=== PATIENT | male | born 1965 | race Caucasian/White ===

== ENCOUNTER 2017-01-06 03:56 | Inpatient (IN) | payer MEDICARE, OTHER ==
[~2017-01-06] VITALS: Ht 182.9 cm; Wt 49.0 kg
[2017-01-06] MEDS ORDERED: LORazepam 2 MG/ML, 1ML ONE (04:03)
[2017-01-06] MEDS ORDERED: methylPREDNISolone SOD SUCC 125 MG/2 ML ONE (04:09)
[2017-01-06] MEDS ORDERED: ALBUTEROL/IPRATROPIUM 2.5MG/0.5MG, 3 ML ONE (04:17)
[2017-01-06] MEDS ORDERED: SODIUM CHLORIDE 0.9% 1,000ML IVBOLUS ONE ×2 (04:30→05:00)
[2017-01-06] MEDS ORDERED: ALBUTEROL/IPRATROPIUM 2.5MG/0.5MG, 3 ML NPPB ONE (04:30)
[2017-01-06] MEDS ORDERED: methylPREDNISolone SOD SUCC 125 MG/2 ML IVP ONE (04:30)
[2017-01-06] MEDS ORDERED: LORazepam 2 MG/ML, 1ML IVP ONE (04:30)
[2017-01-06 04:42] LABS: MEAN CORPUSCULAR HEMOGLOBIN 31.8 pg (27.5-34.5); MEAN CORPUSCULAR VOLUME 93.5 fL (81-97); MEAN PLATELET VOLUME 9.1 fL (7.4-10.4); PLATELET COUNT 163 x10^3/uL (130-400); RED BLOOD COUNT 4.49 x10^6/uL (4.38-5.82)
[2017-01-06 04:49] LABS: ALANINE AMINOTRANSFERASE 18 U/L (12-78); ANION GAP 16 mmol/L (5-15); CALCIUM 8.5 mg/dL (8.5-10.1); CHLORIDE 91 mmol/L (98-107); CREATININE 4.51 mg/dL (0.7-1.3)
[2017-01-06 04:53] LABS: ALKALINE PHOSPHATASE 47 U/L (45-117); BILIRUBIN,TOTAL 2.8 mg/dL (0.2-1.0); TOTAL PROTEIN 6.8 g/dL (6.4-8.2); TROPONIN I < 0.015 ng/mL (0.000-0.045)
[2017-01-06 04:58] LABS: MD YES
[2017-01-06] MEDS ORDERED: LORazepam 2 MG/ML, 1ML IVPush ONE (05:00)
[2017-01-06 05:01] LABS: BAND#(MANUAL) 0.85 x10^3/uL; BANDS%(MANUAL) 18 % (0-7); LYMPH#(MANUAL) 0.19 x10^3/uL (1-3.4); LYMPHS% (MANUAL) 4 % (22-44); SEG#(MANUAL) 3.67 x10^3/uL (1.8-6.8); SEGS% (MANUAL) 78 % (42-75)
[2017-01-06 05:02] LABS: ANISOCYTOSIS 1+
[2017-01-06 05:03] LABS: <PLATELET ESTIMATE> ADEQUATE; GIANT PLATELETS 1+; LARGE PLATELETS 1+; PMNS WITH VACUOLES 1+; TOXIC GRAN 1+
[2017-01-06] MEDS: PROPOFOL 100 ML IV PRN ×5 (05:20→16:39)
[2017-01-06] MEDS ORDERED: CEFTRIAXONE PMX 1GM/50ML 50 ML ONE (05:27)
[2017-01-06] MEDS ORDERED: AZITHROMYCIN 500 MG in SODIUM CHLORIDE 0.9% 250 ML IV ONE (05:30)
[2017-01-06] MEDS ORDERED: ROCURONIUM 10 MG/ML,10ML IVPush ONE (05:30)
[2017-01-06] MEDS ORDERED: CEFTRIAXONE PMX 1GM/50ML 50 ML IV ONE (05:30)
[2017-01-06] MEDS ORDERED: ETOMIDATE 20 MG/10 ML IV ONE (05:30)
[2017-01-06 06:59] LABS: AMPHETAMINE SCREEN, URINE Negative (Negative); BARBITURATE SCREEN, URINE Negative (Negative); BENZODIAZEPINE SCREEN, URINE Negative (Negative); CANNABINOID SCREEN, URINE Negative (Negative); COCAINE SCREEN, URINE Negative (Negative); METHADONE SCREEN, URINE Negative (Negative); OPIATE SCREEN, URINE Negative (Negative)
[2017-01-06] MEDS ORDERED: ETOMIDATE 20 MG/10 ML ONE (08:00)
[2017-01-06] MEDS ORDERED: ROCURONIUM 10 MG/ML,10ML ONE (08:00)
[2017-01-06] MEDS ORDERED: PROPOFOL 10 MG/ML, 100ML IV ONE (08:00)
[2017-01-06] MEDS: FAMOTIDINE 20 MG/2 ML IVPush SCH ×2 (09:00→21:14)
[2017-01-06] MEDS ORDERED: FAMOTIDINE 20 MG/2 ML ONE (09:47)
[2017-01-06] MEDS: AZITHROMYCIN 500 MG in SODIUM CHLORIDE 0.9% 250 ML IV SCH (10:00)
[2017-01-06] MEDS: CEFTRIAXONE PMX 2GM/50ML 50 ML IV SCH (10:00)
[2017-01-06] MEDS: ALBUTEROL/IPRATROPIUM 2.5MG/0.5MG, 3 ML INLINE SCH ×4 (10:42→22:39)
[2017-01-06] MEDS ORDERED: PHARMACY MAY ADJ FOR RENAL FX MC SCH (11:00)
[2017-01-06] MEDS: methylPREDNISolone SOD SUCC 125 MG/2 ML IVPush SCH ×3 (11:12→21:14)
[2017-01-06] MEDS: HEPARIN 5,000 UNITS/ML, 1ML SQ SCH ×2 (11:13→18:47)
[2017-01-06] MEDS: SODIUM CHLORIDE 0.9% 1,000 ML IV SCH ×3 (12:42→22:53)
[2017-01-06] MEDS: THIAMINE 100 MG, MVI ADULT 10 ML, FOLIC ACID 1 MG in D5%-0.9% NACL 1,000 ML IV SCH (12:54)
[2017-01-06] MEDS: NOREPINEPHRINE 4 MG in SODIUM CHLORIDE 0.9% 246 ML IV PRN ×2 (13:31→23:03)
[2017-01-06] MEDS: LIDOCAINE-MPF 1%, 2ML ENDO PRN (13:52)
[2017-01-06 14:33] LABS: MICROSCOPIC INDICATED
[2017-01-06 15:07] LABS: CULTURE INDICATED? YES
[2017-01-07] MEDS: PROPOFOL 100 ML IV PRN ×2 (01:22→17:45)
[2017-01-07] MEDS: ALBUTEROL/IPRATROPIUM 2.5MG/0.5MG, 3 ML INLINE SCH ×6 (02:06→22:37)
[2017-01-07] MEDS: HEPARIN 5,000 UNITS/ML, 1ML SQ SCH ×3 (02:59→18:24)
[2017-01-07] MEDS: SODIUM CHLORIDE 0.9% 1,000 ML IV SCH ×3 (03:45→15:55)
[2017-01-07] MEDS: methylPREDNISolone SOD SUCC 125 MG/2 ML IVPush SCH ×4 (04:11→21:54)
[2017-01-07] MEDS: CEFTRIAXONE PMX 2GM/50ML 50 ML IV SCH (05:04)
[2017-01-07] MEDS: NOREPINEPHRINE 4 MG in SODIUM CHLORIDE 0.9% 246 ML IV PRN ×2 (05:11→13:10)
[2017-01-07 05:45] VITALS: BP 96/59
[2017-01-07 05:56] LABS: CHLORIDE 112 mmol/L (98-107)
[2017-01-07 06:02] LABS: ALANINE AMINOTRANSFERASE 12 U/L (12-78); ALBUMIN 1.3 g/dL (3.4-5.0); ALKALINE PHOSPHATASE 35 U/L (45-117); ANION GAP 12 mmol/L (5-15); BILIRUBIN,TOTAL 2.7 mg/dL (0.2-1.0); CALCIUM 6.9 mg/dL (8.5-10.1); CREATININE 2.98 mg/dL (0.7-1.3); MEAN CORPUSCULAR HEMOGLOBIN 31.5 pg (27.5-34.5); MEAN CORPUSCULAR HGB CONC 33.4 g/dL (33.2-36.2); MEAN CORPUSCULAR VOLUME 94.4 fL (81-97); MEAN PLATELET VOLUME 8.8 fL (7.4-10.4); PLATELET COUNT 130 x10^3/uL (130-400); RED CELL DISTRIBUTION WIDTH 13.5 % (9.4-14.8); TOTAL PROTEIN 4.6 g/dL (6.4-8.2)
[2017-01-07] MEDS: AZITHROMYCIN 500 MG in SODIUM CHLORIDE 0.9% 250 ML IV SCH (06:04)
[2017-01-07 06:25] LABS: MD YES
[2017-01-07 06:29] LABS: BAND#(MANUAL) 0.75 x10^3/uL; BANDS%(MANUAL) 9 % (0-7); LYMPH#(MANUAL) 0.17 x10^3/uL (1-3.4); LYMPHS% (MANUAL) 2 % (22-44); SEG#(MANUAL) 7.39 x10^3/uL (1.8-6.8); SEGS% (MANUAL) 89 % (42-75)
[2017-01-07 06:31] LABS: ANISOCYTOSIS 1+
[2017-01-07 06:32] LABS: <PLATELET ESTIMATE> DECREASED; PMNS WITH VACUOLES 1+; TOXIC GRAN 1+
[2017-01-07 06:33] LABS: <PLT MORPHOLOGY> NORMAL PLT MORPH
[2017-01-07] MEDS: FAMOTIDINE 20 MG/2 ML IVPush SCH (10:02)
[2017-01-07] MEDS: THIAMINE 100 MG, MVI ADULT 10 ML, FOLIC ACID 1 MG in D5%-0.9% NACL 1,000 ML IV SCH (13:11)
[2017-01-07] MEDS: FENTANYL PF 100 MCG/2ML IVPush PRN (18:20)
[2017-01-07] MEDS: LIDOCAINE-MPF 1%, 2ML ENDO PRN (20:02)
[2017-01-07] MEDS: QUETIAPINE 25MG TABLET PO SCH (21:17)
[2017-01-08] MEDS: PROPOFOL 100 ML IV PRN ×5 (00:49→20:55)
[2017-01-08] MEDS: HEPARIN 5,000 UNITS/ML, 1ML SQ SCH ×3 (01:53→17:08)
[2017-01-08] MEDS: ALBUTEROL/IPRATROPIUM 2.5MG/0.5MG, 3 ML INLINE SCH ×6 (02:28→22:12)
[2017-01-08 03:22] LABS: ALANINE AMINOTRANSFERASE 13 U/L (12-78); ALBUMIN 1.1 g/dL (3.4-5.0); ANION GAP 9 mmol/L (5-15); CALCIUM 7.1 mg/dL (8.5-10.1); CHLORIDE 119 mmol/L (98-107); CREATININE 2.86 mg/dL (0.7-1.3)
[2017-01-08 03:24] LABS: ALKALINE PHOSPHATASE 44 U/L (45-117); BILIRUBIN,TOTAL 1.3 mg/dL (0.2-1.0); TOTAL PROTEIN 4.3 g/dL (6.4-8.2)
[2017-01-08 03:26] LABS: MEAN CORPUSCULAR HEMOGLOBIN 32.8 pg (27.5-34.5); MEAN CORPUSCULAR VOLUME 93.7 fL (81-97); MEAN PLATELET VOLUME 8.7 fL (7.4-10.4); PLATELET COUNT 89 x10^3/uL (130-400); RED BLOOD COUNT 2.95 x10^6/uL (4.38-5.82); RED CELL DISTRIBUTION WIDTH 13.4 % (9.4-14.8)
[2017-01-08 03:32] LABS: MD YES
[2017-01-08 03:34] LABS: ANISOCYTOSIS 1+; BAND#(MANUAL) 0.78 x10^3/uL; BANDS%(MANUAL) 8 % (0-7); LYMPH#(MANUAL) 0.29 x10^3/uL (1-3.4); LYMPHS% (MANUAL) 3 % (22-44); SEG#(MANUAL) 8.72 x10^3/uL (1.8-6.8); SEGS% (MANUAL) 89 % (42-75)
[2017-01-08 03:36] LABS: <PLATELET ESTIMATE> DECREASED; <PLT MORPHOLOGY> NORMAL PLT MORPH
[2017-01-08] MEDS: methylPREDNISolone SOD SUCC 125 MG/2 ML IVPush SCH ×3 (04:15→21:56)
[2017-01-08 04:34] VITALS: BP 110/54
[2017-01-08] MEDS: CEFTRIAXONE PMX 2GM/50ML 50 ML IV SCH (04:50)
[2017-01-08] MEDS: AZITHROMYCIN 500 MG in SODIUM CHLORIDE 0.9% 250 ML IV SCH (06:00)
[2017-01-08] MEDS: FENTANYL PF 100 MCG/2ML IVPush PRN ×2 (06:26→20:58)
[2017-01-08] MEDS: QUETIAPINE 25MG TABLET PO SCH ×3 (09:44→21:03)
[2017-01-08] MEDS: FAMOTIDINE 20 MG/2 ML IVPush SCH (09:44)
[2017-01-08] MEDS: LORazepam 2 MG/ML, 1ML IV PRN ×5 (10:39→22:29)
[2017-01-08] MEDS ORDERED: SODIUM CHLORIDE 0.9% 1,000 ML IV SCH (11:00)
[2017-01-08] MEDS: THIAMINE 100 MG, MVI ADULT 10 ML, FOLIC ACID 1 MG in D5%-0.9% NACL 1,000 ML IV SCH (11:52)
[2017-01-08] MEDS: SODIUM CHLORIDE 0.9% 1,000 ML IV SCH (22:29)
[2017-01-09] MEDS: PROPOFOL 100 ML IV PRN ×5 (01:47→23:40)
[2017-01-09] MEDS: HEPARIN 5,000 UNITS/ML, 1ML SQ SCH ×3 (01:48→17:37)
[2017-01-09] MEDS: ALBUTEROL/IPRATROPIUM 2.5MG/0.5MG, 3 ML INLINE SCH ×6 (02:10→23:00)
[2017-01-09 03:50] LABS: ANION GAP 12 mmol/L (5-15); CALCIUM 7.4 mg/dL (8.5-10.1); CHLORIDE 120 mmol/L (98-107); MEAN CORPUSCULAR HEMOGLOBIN 31.7 pg (27.5-34.5); MEAN CORPUSCULAR HGB CONC 34.3 g/dL (33.2-36.2); MEAN CORPUSCULAR VOLUME 92.5 fL (81-97); MEAN PLATELET VOLUME 9.7 fL (7.4-10.4); PLATELET COUNT 95 x10^3/uL (130-400)
[2017-01-09 03:51] LABS: CREATININE 2.61 mg/dL (0.7-1.3); TRIGLYCERIDES 334 mg/dL (50-200)
[2017-01-09] MEDS: CEFTRIAXONE PMX 2GM/50ML 50 ML IV SCH (04:43)
[2017-01-09] MEDS: SODIUM CHLORIDE 0.9% 1,000 ML IV SCH (04:43)
[2017-01-09 05:01] LABS: MD YES
[2017-01-09 05:04] LABS: BAND#(MANUAL) 0.71 x10^3/uL; BANDS%(MANUAL) 5 % (0-7); METAMYELOCYTES# (MANUAL) 0.14 x10^3/uL (0-0); METAMYELOCYTES% (MANUAL) 1 % (0-1); SEG#(MANUAL) 13.35 x10^3/uL (1.8-6.8); SEGS% (MANUAL) 94 % (42-75)
[2017-01-09 05:05] LABS: <PLATELET ESTIMATE> DECREASED; <PLT MORPHOLOGY> NORMAL PLT MORPH; <RBC MORPHOLOGY> NORMAL; PMNS WITH VACUOLES 1+; TOXIC GRAN 1+
[2017-01-09 05:26] VITALS: BP 125/55
[2017-01-09] MEDS: AZITHROMYCIN 500 MG in SODIUM CHLORIDE 0.9% 250 ML IV SCH (05:39)
[2017-01-09] MEDS ORDERED: FUROSEMIDE 40 MG/4 ML IV ONE (08:30)
[2017-01-09] MEDS: QUETIAPINE 25MG TABLET PO SCH ×2 (08:34→20:49)
[2017-01-09] MEDS: FAMOTIDINE 20 MG/2 ML IVPush SCH (08:36)
[2017-01-09] MEDS: methylPREDNISolone SOD SUCC 125 MG/2 ML IVPush SCH ×2 (10:07→21:52)
[2017-01-09] MEDS ORDERED: SODIUM CHLORIDE 0.9% 1,000 ML IV SCH (11:00)
[2017-01-09] MEDS: THIAMINE 100 MG, MVI ADULT 10 ML, FOLIC ACID 1 MG in D5%-0.9% NACL 1,000 ML IV SCH (14:32)
[2017-01-09] MEDS: ACETAMINOPHEN 325 MG TABLET PO PRN (20:49)
[2017-01-10] MEDS ORDERED: SODIUM CHLORIDE 0.9% 1,000 ML IV SCH ×2 (01:00→11:00)
[2017-01-10] MEDS: HEPARIN 5,000 UNITS/ML, 1ML SQ SCH ×3 (02:41→18:30)
[2017-01-10] MEDS: ALBUTEROL/IPRATROPIUM 2.5MG/0.5MG, 3 ML INLINE SCH ×6 (03:00→23:17)
[2017-01-10 03:34] LABS: MEAN CORPUSCULAR HEMOGLOBIN 31.9 pg (27.5-34.5); MEAN CORPUSCULAR HGB CONC 34.4 g/dL (33.2-36.2); MEAN CORPUSCULAR VOLUME 92.8 fL (81-97); MEAN PLATELET VOLUME 10.6 fL (7.4-10.4); PLATELET COUNT 104 x10^3/uL (130-400)
[2017-01-10 03:35] LABS: ANION GAP 6 mmol/L (5-15); CALCIUM 7.5 mg/dL (8.5-10.1); CHLORIDE 123 mmol/L (98-107)
[2017-01-10 03:39] LABS: ALANINE AMINOTRANSFERASE 24 U/L (12-78); ALKALINE PHOSPHATASE 129 U/L (45-117); CREATININE 2.59 mg/dL (0.7-1.3); TOTAL PROTEIN 4.8 g/dL (6.4-8.2)
[2017-01-10 04:00] VITALS: BP 131/69
[2017-01-10 04:12] LABS: MD YES
[2017-01-10 04:15] LABS: BAND#(MANUAL) 2.12 x10^3/uL; BANDS%(MANUAL) 12 % (0-7); LYMPH#(MANUAL) 0.35 x10^3/uL (1-3.4); LYMPHS% (MANUAL) 2 % (22-44); SEG#(MANUAL) 15.22 x10^3/uL (1.8-6.8); SEGS% (MANUAL) 86 % (42-75)
[2017-01-10 04:16] LABS: <PLATELET ESTIMATE> DECREASED; <RBC MORPHOLOGY> NORMAL; LARGE PLATELETS 1+
[2017-01-10] MEDS: CEFTRIAXONE PMX 2GM/50ML 50 ML IV SCH (04:45)
[2017-01-10] MEDS: PROPOFOL 100 ML IV PRN ×3 (04:45→20:54)
[2017-01-10] MEDS: AZITHROMYCIN 500 MG in SODIUM CHLORIDE 0.9% 250 ML IV SCH (05:47)
[2017-01-10] MEDS ORDERED: VECURONIUM 10 MG IVPush ONE (08:00)
[2017-01-10] MEDS: QUETIAPINE 25MG TABLET PO SCH ×2 (08:54→16:27)
[2017-01-10] MEDS: FAMOTIDINE 20 MG/2 ML IVPush SCH (08:54)
[2017-01-10] MEDS: methylPREDNISolone SOD SUCC 125 MG/2 ML IVPush SCH ×2 (11:17→21:43)
[2017-01-10] MEDS ORDERED: NACL IV SCH (11:30)
[2017-01-10] MEDS ORDERED: MVI ADULT IV SCH (11:30)
[2017-01-10] MEDS ORDERED: FOLIC ACID IV SCH (11:30)
[2017-01-10] MEDS ORDERED: THIAMINE IV SCH (11:30)
[2017-01-10] MEDS ORDERED: D5 IV SCH (11:30)
[2017-01-10] MEDS ORDERED: DIAZEPAM 5 MG/ML, 2ML IV ONE ×2 (14:30→16:00)
[2017-01-10] MEDS ORDERED: BISACODYL 10 MG SUPP PR PRN (15:00)
[2017-01-10] MEDS: DIAZEPAM 5 MG/ML, 2ML IV SCH ×2 (18:37→22:41)
[2017-01-10] MEDS: SENNOSIDES 8.8 MG/5 ML ORAL SOL NG SCH (21:42)
[2017-01-10] MEDS: SENNA/DOCUSATE TABLET PO SCH (21:43)
[2017-01-11] MEDS: ACETAMINOPHEN 325 MG TABLET PO PRN (00:47)
[2017-01-11] MEDS: QUETIAPINE 25MG TABLET PO SCH ×3 (01:30→17:36)
[2017-01-11] MEDS: HEPARIN 5,000 UNITS/ML, 1ML SQ SCH ×3 (02:18→17:30)
[2017-01-11] MEDS: DIAZEPAM 5 MG/ML, 2ML IV SCH ×3 (02:18→10:55)
[2017-01-11 02:50] LABS: RAPID INFLUENZA A Negative (Negative); RAPID INFLUENZA B Negative (Negative)
[2017-01-11] MEDS: ALBUTEROL/IPRATROPIUM 2.5MG/0.5MG, 3 ML INLINE SCH ×6 (03:16→23:00)
[2017-01-11 05:00] VITALS: BP 109/62
[2017-01-11 05:08] LABS: BASOPHILS % (AUTO) 0 % (0-1); EOSINOPHILS # (AUTO) 0.01 x10^3/uL (0-0.4); EOSINOPHILS % (AUTO) 0 % (1-7); LYMPHOCYTES # (AUTO) 0.23 x10^3/uL (1-3.4); LYMPHOCYTES % (AUTO) 2 % (22-44); MD SCAN; MEAN CORPUSCULAR HEMOGLOBIN 31.8 pg (27.5-34.5); MEAN CORPUSCULAR HGB CONC 34.7 g/dL (33.2-36.2); MEAN CORPUSCULAR VOLUME 91.7 fL (81-97); MEAN PLATELET VOLUME 9.8 fL (7.4-10.4); MONOCYTES # (AUTO) 0.02 x10^3/uL (0.2-0.8); MONOCYTES % (AUTO) 0 % (2-9); NEUTROPHILS # (AUTO) 15.63 x10^3/uL (1.8-6.8); NEUTROPHILS % (AUTO) 98 % (42-75); PLATELET COUNT 129 x10^3/uL (130-400); RED BLOOD COUNT 3.19 x10^6/uL (4.38-5.82); RED CELL DISTRIBUTION WIDTH 14.3 % (9.4-14.8)
[2017-01-11] MEDS: CEFTRIAXONE PMX 2GM/50ML 50 ML IV SCH (05:51)
[2017-01-11] MEDS: AZITHROMYCIN 500 MG in SODIUM CHLORIDE 0.9% 250 ML IV SCH (06:30)
[2017-01-11 07:58] LABS: CALCIUM 7.9 mg/dL (8.5-10.1); CHLORIDE 125 mmol/L (98-107)
[2017-01-11 08:18] LABS: ANION GAP 6 mmol/L (5-15); CREATININE 2.62 mg/dL (0.7-1.3)
[2017-01-11] MEDS: DOCUSATE 100 MG CAPSULE PO SCH (08:50)
[2017-01-11] MEDS: FAMOTIDINE 20 MG/2 ML IVPush SCH (08:50)
[2017-01-11] MEDS: DOCUSATE 50 MG/5 ML, 10ML UDC NG SCH (08:50)
[2017-01-11] MEDS: methylPREDNISolone SOD SUCC 125 MG/2 ML IVPush SCH ×2 (10:44→22:21)
[2017-01-11] MEDS ORDERED: ALBUMIN HUMAN 25% 100 ML IV ONE (12:00)
[2017-01-11] MEDS ORDERED: FUROSEMIDE 40 MG/4 ML IV ONE (13:00)
[2017-01-11] MEDS: DIAZEPAM 5 MG/ML, 10ML VIAL IV SCH ×2 (17:30→20:54)
[2017-01-11] MEDS: SENNOSIDES 8.8 MG/5 ML ORAL SOL NG SCH (20:50)
[2017-01-11] MEDS: SENNA/DOCUSATE TABLET PO SCH (20:52)
[2017-01-11] MEDS: PROPOFOL 100 ML IV PRN (23:06)
[2017-01-12] MEDS: DIAZEPAM 5 MG/ML, 10ML VIAL IV SCH ×5 (01:12→22:30)
[2017-01-12] MEDS: QUETIAPINE 25MG TABLET PO SCH ×3 (01:13→20:42)
[2017-01-12] MEDS: HEPARIN 5,000 UNITS/ML, 1ML SQ SCH ×3 (02:36→18:24)
[2017-01-12] MEDS: ALBUTEROL/IPRATROPIUM 2.5MG/0.5MG, 3 ML INLINE SCH ×6 (03:00→22:10)
[2017-01-12 04:32] LABS: MEAN CORPUSCULAR HEMOGLOBIN 31.6 pg (27.5-34.5); MEAN CORPUSCULAR HGB CONC 34.6 g/dL (33.2-36.2); MEAN CORPUSCULAR VOLUME 91.3 fL (81-97); MEAN PLATELET VOLUME 10.6 fL (7.4-10.4); PLATELET COUNT 149 x10^3/uL (130-400); RED BLOOD COUNT 2.97 x10^6/uL (4.38-5.82)
[2017-01-12 05:00] VITALS: BP 106/61
[2017-01-12 05:11] LABS: BASOPHILS % (AUTO) 0 % (0-1); EOSINOPHILS # (AUTO) 0.01 x10^3/uL (0-0.4); EOSINOPHILS % (AUTO) 0 % (1-7); LYMPHOCYTES # (AUTO) 0.23 x10^3/uL (1-3.4); LYMPHOCYTES % (AUTO) 1 % (22-44); MD SCAN; MONOCYTES # (AUTO) 0.07 x10^3/uL (0.2-0.8); MONOCYTES % (AUTO) 0 % (2-9); NEUTROPHILS # (AUTO) 17.37 x10^3/uL (1.8-6.8); NEUTROPHILS % (AUTO) 98 % (42-75)
[2017-01-12] MEDS: CEFTRIAXONE PMX 2GM/50ML 50 ML IV SCH (05:18)
[2017-01-12] MEDS: AZITHROMYCIN 500 MG in SODIUM CHLORIDE 0.9% 250 ML IV SCH (06:04)
[2017-01-12] MEDS: LACTULOSE 20 GM/30 ML UDC PO PRN (06:37)
[2017-01-12 08:16] LABS: ALANINE AMINOTRANSFERASE 34 U/L (12-78); ALBUMIN 1.3 g/dL (3.4-5.0); ANION GAP 7 mmol/L (5-15); CALCIUM 8.2 mg/dL (8.5-10.1); CHLORIDE 125 mmol/L (98-107)
[2017-01-12 08:19] LABS: ALKALINE PHOSPHATASE 137 U/L (45-117); BILIRUBIN,TOTAL 0.6 mg/dL (0.2-1.0); TOTAL PROTEIN 5.2 g/dL (6.4-8.2)
[2017-01-12] MEDS ORDERED: DIAZEPAM 5 MG/ML, 10ML VIAL IV SCH (08:30)
[2017-01-12] MEDS: DOCUSATE 100 MG CAPSULE PO SCH (09:00)
[2017-01-12] MEDS: FAMOTIDINE 20 MG/2 ML IVPush SCH (09:33)
[2017-01-12] MEDS: DOCUSATE 50 MG/5 ML, 10ML UDC NG SCH (09:33)
[2017-01-12] MEDS: methylPREDNISolone SOD SUCC 125 MG/2 ML IVPush SCH ×2 (09:38→20:42)
[2017-01-12] MEDS ORDERED: SODIUM POLYSTYRENE SULFONATE ORAL SUSP PO ONE (10:00)
[2017-01-12] MEDS: AMIODARONE 200 MG TABLET PO SCH ×2 (10:42→20:42)
[2017-01-12] MEDS: ACETAMINOPHEN 325 MG TABLET PO PRN (12:41)
[2017-01-13] MEDS: ALBUTEROL/IPRATROPIUM 2.5MG/0.5MG, 3 ML INLINE SCH ×6 (02:20→22:30)
[2017-01-13] MEDS: HEPARIN 5,000 UNITS/ML, 1ML SQ SCH ×3 (02:40→18:18)
[2017-01-13] MEDS: DIAZEPAM 5 MG/ML, 10ML VIAL IV SCH ×4 (04:30→22:16)
[2017-01-13 04:40] LABS: MEAN CORPUSCULAR HEMOGLOBIN 31.3 pg (27.5-34.5); MEAN CORPUSCULAR VOLUME 91.9 fL (81-97); MEAN PLATELET VOLUME 10.8 fL (7.4-10.4); PLATELET COUNT 169 x10^3/uL (130-400); RED BLOOD COUNT 3.02 x10^6/uL (4.38-5.82); RED CELL DISTRIBUTION WIDTH 14.4 % (9.4-14.8)
[2017-01-13 05:01] VITALS: BP 118/68
[2017-01-13] MEDS: CEFTRIAXONE PMX 2GM/50ML 50 ML IV SCH (05:24)
[2017-01-13 05:41] LABS: MD YES
[2017-01-13 06:05] LABS: BAND#(MANUAL) 0.17 x10^3/uL; BANDS%(MANUAL) 1 % (0-7); LYMPH#(MANUAL) 0.52 x10^3/uL (1-3.4); LYMPHS% (MANUAL) 3 % (22-44); SEG#(MANUAL) 16.51 x10^3/uL (1.8-6.8); SEGS% (MANUAL) 96 % (42-75)
[2017-01-13 06:06] LABS: <PLATELET ESTIMATE> ADEQUATE; <RBC MORPHOLOGY> NORMAL; LARGE PLATELETS 1+
[2017-01-13] MEDS: AZITHROMYCIN 500 MG in SODIUM CHLORIDE 0.9% 250 ML IV SCH (06:33)
[2017-01-13] MEDS ORDERED: SODIUM POLYSTYRENE SULFONATE ORAL SUSP PO ONE (07:30)
[2017-01-13 08:55] LABS: ANION GAP 7 mmol/L (5-15); CALCIUM 8.1 mg/dL (8.5-10.1); CHLORIDE 127 mmol/L (98-107); CREATININE 2.53 mg/dL (0.7-1.3)
[2017-01-13] MEDS: DOCUSATE 50 MG/5 ML, 10ML UDC NG SCH (09:00)
[2017-01-13] MEDS: DOCUSATE 100 MG CAPSULE PO SCH (09:00)
[2017-01-13] MEDS: AMIODARONE 200 MG TABLET PO SCH ×2 (09:26→21:01)
[2017-01-13] MEDS: QUETIAPINE 25MG TABLET PO SCH ×2 (09:26→21:01)
[2017-01-13] MEDS: FAMOTIDINE 20 MG/2 ML IVPush SCH (09:27)
[2017-01-13] MEDS: DEXTROSE 5% 1,000 ML IV SCH (09:30)
[2017-01-13] MEDS: methylPREDNISolone SOD SUCC 125 MG/2 ML IVPush SCH (10:00)
[2017-01-13 12:33] LABS: ANION GAP 7 mmol/L (5-15); CALCIUM 7.9 mg/dL (8.5-10.1); CHLORIDE 125 mmol/L (98-107); CREATININE 2.52 mg/dL (0.7-1.3)
[2017-01-13] MEDS: ACETAMINOPHEN 325 MG TABLET PO PRN (14:29)
[2017-01-13 14:49] LABS: MICROSCOPIC INDICATED
[2017-01-13 15:31] LABS: CULTURE INDICATED? NO
[2017-01-14] MEDS: DEXTROSE 5% 1,000 ML IV SCH ×2 (00:54→13:50)
[2017-01-14] MEDS: HEPARIN 5,000 UNITS/ML, 1ML SQ SCH ×3 (02:04→18:39)
[2017-01-14] MEDS: ALBUTEROL/IPRATROPIUM 2.5MG/0.5MG, 3 ML INLINE SCH ×6 (02:05→23:00)
[2017-01-14] MEDS: DIAZEPAM 5 MG/ML, 10ML VIAL IV SCH ×4 (04:32→22:07)
[2017-01-14 04:35] LABS: MEAN CORPUSCULAR HEMOGLOBIN 31.4 pg (27.5-34.5); MEAN CORPUSCULAR HGB CONC 34.2 g/dL (33.2-36.2); MEAN CORPUSCULAR VOLUME 91.8 fL (81-97); MEAN PLATELET VOLUME 11.1 fL (7.4-10.4); PLATELET COUNT 180 x10^3/uL (130-400); RED BLOOD COUNT 2.85 x10^6/uL (4.38-5.82)
[2017-01-14] MEDS: CEFTRIAXONE PMX 2GM/50ML 50 ML IV SCH (04:54)
[2017-01-14 05:00] VITALS: BP 136/64
[2017-01-14 05:00] LABS: BASOPHILS # (AUTO) 0.04 x10^3/uL (0-0.1); BASOPHILS % (AUTO) 0 % (0-1); EOSINOPHILS # (AUTO) 0.01 x10^3/uL (0-0.4); EOSINOPHILS % (AUTO) 0 % (1-7); LYMPHOCYTES # (AUTO) 0.51 x10^3/uL (1-3.4); LYMPHOCYTES % (AUTO) 3 % (22-44); MD SCAN; MONOCYTES # (AUTO) 0.16 x10^3/uL (0.2-0.8); MONOCYTES % (AUTO) 1 % (2-9); NEUTROPHILS # (AUTO) 15.29 x10^3/uL (1.8-6.8); NEUTROPHILS % (AUTO) 96 % (42-75)
[2017-01-14 05:38] LABS: ANION GAP 8 mmol/L (5-15); CALCIUM 7.7 mg/dL (8.5-10.1); CHLORIDE 122 mmol/L (98-107); CREATININE 2.41 mg/dL (0.7-1.3)
[2017-01-14] MEDS: AZITHROMYCIN 500 MG in SODIUM CHLORIDE 0.9% 250 ML IV SCH (05:39)
[2017-01-14] MEDS: DOCUSATE 50 MG/5 ML, 10ML UDC NG SCH (09:00)
[2017-01-14] MEDS: QUETIAPINE 25MG TABLET PO SCH ×2 (09:25→21:21)
[2017-01-14] MEDS: FAMOTIDINE 20 MG/2 ML IVPush SCH (09:25)
[2017-01-14] MEDS: methylPREDNISolone SOD SUCC 125 MG/2 ML IVPush SCH (09:25)
[2017-01-14] MEDS: AMIODARONE 200 MG TABLET PO SCH ×2 (09:25→21:21)
[2017-01-14] MEDS: ACETAMINOPHEN 325 MG TABLET PO PRN ×2 (09:32→23:48)
[2017-01-15] MEDS: HEPARIN 5,000 UNITS/ML, 1ML SQ SCH ×3 (01:58→18:13)
[2017-01-15] MEDS: ALBUTEROL/IPRATROPIUM 2.5MG/0.5MG, 3 ML INLINE SCH ×7 (03:00→23:00)
[2017-01-15] MEDS: DIAZEPAM 5 MG/ML, 10ML VIAL IV SCH ×4 (04:30→21:31)
[2017-01-15 04:34] LABS: MEAN CORPUSCULAR HEMOGLOBIN 31.2 pg (27.5-34.5); MEAN CORPUSCULAR HGB CONC 34.1 g/dL (33.2-36.2); MEAN CORPUSCULAR VOLUME 91.6 fL (81-97); MEAN PLATELET VOLUME 11.1 fL (7.4-10.4); PLATELET COUNT 178 x10^3/uL (130-400); RED BLOOD COUNT 2.85 x10^6/uL (4.38-5.82)
[2017-01-15] MEDS: CEFTRIAXONE PMX 2GM/50ML 50 ML IV SCH (04:38)
[2017-01-15 04:39] LABS: ANION GAP 7 mmol/L (5-15); CHLORIDE 120 mmol/L (98-107)
[2017-01-15 04:46] LABS: ALANINE AMINOTRANSFERASE 58 U/L (12-78); ALBUMIN 1.1 g/dL (3.4-5.0); ALKALINE PHOSPHATASE 195 U/L (45-117); BILIRUBIN,TOTAL 0.5 mg/dL (0.2-1.0); CALCIUM 7.3 mg/dL (8.5-10.1); TOTAL PROTEIN 5.3 g/dL (6.4-8.2)
[2017-01-15 05:00] VITALS: BP 136/72
[2017-01-15 05:52] LABS: BASOPHILS % (AUTO) 0 % (0-1); EOSINOPHILS # (AUTO) 0.05 x10^3/uL (0-0.4); EOSINOPHILS % (AUTO) 0 % (1-7); LYMPHOCYTES # (AUTO) 0.61 x10^3/uL (1-3.4); LYMPHOCYTES % (AUTO) 4 % (22-44); MD MORPH REVIEW ONLY; MONOCYTES # (AUTO) 0.02 x10^3/uL (0.2-0.8); MONOCYTES % (AUTO) 0 % (2-9); NEUTROPHILS # (AUTO) 14.24 x10^3/uL (1.8-6.8); NEUTROPHILS % (AUTO) 95 % (42-75)
[2017-01-15 05:53] LABS: ANISOCYTOSIS 1+; TARGET CELLS 1+
[2017-01-15 05:54] LABS: <PLATELET ESTIMATE> ADEQUATE; LARGE PLATELETS 1+
[2017-01-15] MEDS: DEXTROSE 5% 1,000 ML IV SCH ×2 (06:00→19:49)
[2017-01-15] MEDS: AZITHROMYCIN 500 MG in SODIUM CHLORIDE 0.9% 250 ML IV SCH (06:01)
[2017-01-15] MEDS: DOCUSATE 50 MG/5 ML, 10ML UDC NG SCH (09:00)
[2017-01-15] MEDS: QUETIAPINE 25MG TABLET PO SCH ×2 (09:08→21:32)
[2017-01-15] MEDS: FAMOTIDINE 20 MG/2 ML IVPush SCH (09:08)
[2017-01-15] MEDS: methylPREDNISolone SOD SUCC 125 MG/2 ML IVPush SCH (09:08)
[2017-01-15] MEDS: AMIODARONE 200 MG TABLET PO SCH ×2 (09:08→21:32)
[2017-01-15] MEDS: ACETAMINOPHEN 325 MG TABLET PO PRN ×2 (13:34→22:52)
[2017-01-15] MEDS: FENTANYL PF 100 MCG/2ML IVPush PRN (19:47)
[2017-01-16] MEDS: LORazepam 2 MG/ML, 1ML IV PRN (01:17)
[2017-01-16] MEDS: ALBUTEROL/IPRATROPIUM 2.5MG/0.5MG, 3 ML INLINE SCH ×6 (03:00→23:00)
[2017-01-16] MEDS: DIAZEPAM 5 MG/ML, 10ML VIAL IV SCH ×4 (03:51→21:29)
[2017-01-16] MEDS: HEPARIN 5,000 UNITS/ML, 1ML SQ SCH ×3 (03:51→18:00)
[2017-01-16 03:54] LABS: ANION GAP 6 mmol/L (5-15); CALCIUM 7.5 mg/dL (8.5-10.1); CHLORIDE 121 mmol/L (98-107); CREATININE 2.41 mg/dL (0.7-1.3)
[2017-01-16 04:11] LABS: MEAN CORPUSCULAR HEMOGLOBIN 30.9 pg (27.5-34.5); MEAN CORPUSCULAR HGB CONC 33.9 g/dL (33.2-36.2); MEAN CORPUSCULAR VOLUME 91.3 fL (81-97); MEAN PLATELET VOLUME 12.3 fL (7.4-10.4); PLATELET COUNT 177 x10^3/uL (130-400); RED BLOOD COUNT 2.62 x10^6/uL (4.38-5.82); RED CELL DISTRIBUTION WIDTH 13.9 % (9.4-14.8)
[2017-01-16 04:12] LABS: MD YES
[2017-01-16 04:13] LABS: BAND#(MANUAL) 0.35 x10^3/uL; BANDS%(MANUAL) 3 % (0-7); EOS#(MANUAL) 0.12 x10^3/uL (0.0-0.4); EOS% (MANUAL) 1 % (1-7); LYMPH#(MANUAL) 0.59 x10^3/uL (1-3.4); LYMPHS% (MANUAL) 5 % (22-44); SEG#(MANUAL) 10.74 x10^3/uL (1.8-6.8); SEGS% (MANUAL) 91 % (42-75)
[2017-01-16 04:14] LABS: ANISOCYTOSIS 1+
[2017-01-16 04:15] LABS: OVALOCYTES 1+
[2017-01-16 04:17] LABS: <PLATELET ESTIMATE> ADEQUATE; LARGE PLATELETS 1+
[2017-01-16 05:23] VITALS: BP 133/68
[2017-01-16] MEDS: CEFTRIAXONE PMX 2GM/50ML 50 ML IV SCH (05:31)
[2017-01-16] MEDS: AMIODARONE 200 MG TABLET PO SCH ×2 (09:07→20:17)
[2017-01-16] MEDS: FAMOTIDINE 20 MG/2 ML IVPush SCH (09:08)
[2017-01-16] MEDS: DOCUSATE 50 MG/5 ML, 10ML UDC NG SCH (09:08)
[2017-01-16] MEDS: QUETIAPINE 25MG TABLET PO SCH ×2 (09:08→20:17)
[2017-01-16] MEDS: methylPREDNISolone SOD SUCC 125 MG/2 ML IVPush SCH (09:08)
[2017-01-16] MEDS: DEXTROSE 5% 1,000 ML IV SCH (20:18)
[2017-01-17] MEDS: HEPARIN 5,000 UNITS/ML, 1ML SQ SCH ×3 (01:02→18:29)
[2017-01-17] MEDS: ALBUTEROL/IPRATROPIUM 2.5MG/0.5MG, 3 ML INLINE SCH ×6 (03:40→23:00)
[2017-01-17] MEDS: CEFTRIAXONE PMX 2GM/50ML 50 ML IV SCH (03:57)
[2017-01-17] MEDS: DIAZEPAM 5 MG/ML, 10ML VIAL IV SCH ×4 (03:57→20:11)
[2017-01-17 04:10] VITALS: BP 105/65
[2017-01-17 04:34] LABS: ANION GAP 8 mmol/L (5-15); CALCIUM 7.5 mg/dL (8.5-10.1); CHLORIDE 113 mmol/L (98-107)
[2017-01-17 04:38] LABS: ALANINE AMINOTRANSFERASE 44 U/L (12-78); ALKALINE PHOSPHATASE 147 U/L (45-117); BILIRUBIN,TOTAL 0.4 mg/dL (0.2-1.0); CREATININE 1.97 mg/dL (0.7-1.3)
[2017-01-17 04:46] LABS: MEAN CORPUSCULAR HEMOGLOBIN 30.3 pg (27.5-34.5); MEAN CORPUSCULAR HGB CONC 32.8 g/dL (33.2-36.2); MEAN CORPUSCULAR VOLUME 92.3 fL (81-97); MEAN PLATELET VOLUME 12.3 fL (7.4-10.4); PLATELET COUNT 153 x10^3/uL (130-400); RED BLOOD COUNT 2.52 x10^6/uL (4.38-5.82); RED CELL DISTRIBUTION WIDTH 14.3 % (9.4-14.8)
[2017-01-17 05:43] LABS: BASOPHILS % (AUTO) 0 % (0-1); EOSINOPHILS # (AUTO) 0.08 x10^3/uL (0-0.4); EOSINOPHILS % (AUTO) 1 % (1-7); LYMPHOCYTES # (AUTO) 0.61 x10^3/uL (1-3.4); LYMPHOCYTES % (AUTO) 6 % (22-44); MD SCAN; MONOCYTES # (AUTO) 0.02 x10^3/uL (0.2-0.8); MONOCYTES % (AUTO) 0 % (2-9); NEUTROPHILS # (AUTO) 9.36 x10^3/uL (1.8-6.8); NEUTROPHILS % (AUTO) 93 % (42-75)
[2017-01-17] MEDS: FENTANYL PF 100 MCG/2ML IVPush PRN (06:08)
[2017-01-17] MEDS: methylPREDNISolone SOD SUCC 125 MG/2 ML IVPush SCH (07:46)
[2017-01-17] MEDS: FAMOTIDINE 20 MG/2 ML IVPush SCH (07:46)
[2017-01-17] MEDS: AMIODARONE 200 MG TABLET PO SCH ×2 (07:47→20:10)
[2017-01-17] MEDS: QUETIAPINE 25MG TABLET PO SCH ×2 (07:47→20:10)
[2017-01-17] MEDS: DOCUSATE 50 MG/5 ML, 10ML UDC NG SCH (07:47)
[2017-01-17 10:30] LABS: O2 FLOW 50 L/min
[2017-01-18] MEDS: HEPARIN 5,000 UNITS/ML, 1ML SQ SCH ×3 (02:46→17:32)
[2017-01-18] MEDS: DIAZEPAM 5 MG/ML, 10ML VIAL IV SCH ×4 (02:47→21:12)
[2017-01-18] MEDS: ALBUTEROL/IPRATROPIUM 2.5MG/0.5MG, 3 ML INLINE SCH ×6 (03:10→22:15)
[2017-01-18 04:00] VITALS: BP 99/55
[2017-01-18] MEDS: CEFTRIAXONE PMX 2GM/50ML 50 ML IV SCH (04:31)
[2017-01-18] MEDS: ACETAMINOPHEN 325 MG TABLET PO PRN (04:40)
[2017-01-18] MEDS: FENTANYL PF 100 MCG/2ML IVPush PRN (04:48)
[2017-01-18 04:57] LABS: BASOPHILS # (AUTO) 0.02 x10^3/uL (0-0.1); BASOPHILS % (AUTO) 0 % (0-1); EOSINOPHILS # (AUTO) 0.08 x10^3/uL (0-0.4); EOSINOPHILS % (AUTO) 1 % (1-7); LYMPHOCYTES # (AUTO) 0.62 x10^3/uL (1-3.4); LYMPHOCYTES % (AUTO) 7 % (22-44); MD NO; MEAN CORPUSCULAR HGB CONC 34.2 g/dL (33.2-36.2); MEAN CORPUSCULAR VOLUME 90.7 fL (81-97); MEAN PLATELET VOLUME 12.3 fL (7.4-10.4); MONOCYTES # (AUTO) 0.16 x10^3/uL (0.2-0.8); MONOCYTES % (AUTO) 2 % (2-9); NEUTROPHILS # (AUTO) 8.36 x10^3/uL (1.8-6.8); NEUTROPHILS % (AUTO) 90 % (42-75); PLATELET COUNT 139 x10^3/uL (130-400); RED BLOOD COUNT 2.47 x10^6/uL (4.38-5.82)
[2017-01-18 05:10] LABS: ANION GAP 8 mmol/L (5-15); CALCIUM 7.5 mg/dL (8.5-10.1); CHLORIDE 110 mmol/L (98-107); CREATININE 1.76 mg/dL (0.7-1.3)
[2017-01-18] MEDS: DOCUSATE 50 MG/5 ML, 10ML UDC NG SCH (09:00)
[2017-01-18] MEDS: AMIODARONE 200 MG TABLET PO SCH ×2 (10:38→21:12)
[2017-01-18] MEDS: FAMOTIDINE 20 MG/2 ML IVPush SCH (10:38)
[2017-01-18] MEDS: QUETIAPINE 100MG TABLET PO SCH ×3 (10:38→21:12)
[2017-01-18] MEDS: methylPREDNISolone SOD SUCC 125 MG/2 ML IVPush SCH (10:38)
[2017-01-19] MEDS: ALBUTEROL/IPRATROPIUM 2.5MG/0.5MG, 3 ML INLINE SCH ×6 (02:00→22:22)
[2017-01-19] MEDS: HEPARIN 5,000 UNITS/ML, 1ML SQ SCH ×3 (02:33→16:34)
[2017-01-19] MEDS: DIAZEPAM 5 MG/ML, 10ML VIAL IV SCH ×4 (02:34→21:15)
[2017-01-19] MEDS: CEFTRIAXONE PMX 2GM/50ML 50 ML IV SCH (04:16)
[2017-01-19 04:39] LABS: MEAN CORPUSCULAR HEMOGLOBIN 31.3 pg (27.5-34.5); MEAN CORPUSCULAR HGB CONC 34.2 g/dL (33.2-36.2); MEAN CORPUSCULAR VOLUME 91.6 fL (81-97); RED BLOOD COUNT 2.33 x10^6/uL (4.38-5.82); RED CELL DISTRIBUTION WIDTH 13.8 % (9.4-14.8)
[2017-01-19 04:48] LABS: ANION GAP 9 mmol/L (5-15); CALCIUM 7.8 mg/dL (8.5-10.1); CHLORIDE 111 mmol/L (98-107)
[2017-01-19 04:49] LABS: CREATININE 2.04 mg/dL (0.7-1.3)
[2017-01-19 05:00] VITALS: BP 92/52
[2017-01-19 05:41] LABS: BASOPHILS # (AUTO) 0.01 x10^3/uL (0-0.1); BASOPHILS % (AUTO) 0 % (0-1); EOSINOPHILS # (AUTO) 0.02 x10^3/uL (0-0.4); EOSINOPHILS % (AUTO) 0 % (1-7); LYMPHOCYTES # (AUTO) 0.63 x10^3/uL (1-3.4); LYMPHOCYTES % (AUTO) 9 % (22-44); MD SCAN; MEAN PLATELET VOLUME 12.6 fL (7.4-10.4); MONOCYTES # (AUTO) 0.19 x10^3/uL (0.2-0.8); MONOCYTES % (AUTO) 3 % (2-9); NEUTROPHILS # (AUTO) 6.04 x10^3/uL (1.8-6.8); NEUTROPHILS % (AUTO) 88 % (42-75); PLATELET COUNT 143 x10^3/uL (130-400)
[2017-01-19] MEDS: FAMOTIDINE 20 MG/2 ML IVPush SCH (08:25)
[2017-01-19] MEDS: methylPREDNISolone SOD SUCC 125 MG/2 ML IVPush SCH (08:27)
[2017-01-19] MEDS: DOCUSATE 50 MG/5 ML, 10ML UDC NG SCH (08:27)
[2017-01-19] MEDS: AMIODARONE 200 MG TABLET PO SCH ×2 (08:28→21:15)
[2017-01-19] MEDS: QUETIAPINE 100MG TABLET PO SCH ×3 (08:28→21:15)
[2017-01-19] MEDS: LORazepam 2 MG/ML, 1ML IV PRN (13:26)
[2017-01-20] MEDS: DIAZEPAM 5 MG/ML, 10ML VIAL IV SCH ×4 (02:43→21:19)
[2017-01-20] MEDS: HEPARIN 5,000 UNITS/ML, 1ML SQ SCH ×3 (02:44→18:53)
[2017-01-20] MEDS: ALBUTEROL/IPRATROPIUM 2.5MG/0.5MG, 3 ML INLINE SCH ×6 (02:58→22:19)
[2017-01-20] MEDS: LORazepam 2 MG/ML, 1ML IV PRN ×2 (04:47→14:02)
[2017-01-20 05:00] VITALS: BP 112/59
[2017-01-20 05:04] LABS: ANION GAP 9 mmol/L (5-15); CALCIUM 7.9 mg/dL (8.5-10.1); CHLORIDE 114 mmol/L (98-107); CREATININE 1.57 mg/dL (0.7-1.3)
[2017-01-20 05:11] LABS: MEAN CORPUSCULAR VOLUME 91.2 fL (81-97); MEAN PLATELET VOLUME 12.2 fL (7.4-10.4); PLATELET COUNT 175 x10^3/uL (130-400); RED BLOOD COUNT 2.57 x10^6/uL (4.38-5.82); RED CELL DISTRIBUTION WIDTH 13.8 % (9.4-14.8)
[2017-01-20] MEDS: CEFTRIAXONE PMX 2GM/50ML 50 ML IV SCH (05:19)
[2017-01-20 05:41] LABS: BASOPHILS # (AUTO) 0.03 x10^3/uL (0-0.1); BASOPHILS % (AUTO) 0 % (0-1); EOSINOPHILS # (AUTO) 0.11 x10^3/uL (0-0.4); EOSINOPHILS % (AUTO) 1 % (1-7); LYMPHOCYTES # (AUTO) 0.79 x10^3/uL (1-3.4); LYMPHOCYTES % (AUTO) 9 % (22-44); MD SCAN; MONOCYTES # (AUTO) 0.46 x10^3/uL (0.2-0.8); MONOCYTES % (AUTO) 5 % (2-9); NEUTROPHILS % (AUTO) 85 % (42-75)
[2017-01-20] MEDS: QUETIAPINE 100MG TABLET PO SCH ×3 (08:57→21:19)
[2017-01-20] MEDS: FAMOTIDINE 20 MG/2 ML IVPush SCH (08:57)
[2017-01-20] MEDS: methylPREDNISolone SOD SUCC 125 MG/2 ML IVPush SCH (08:57)
[2017-01-20] MEDS: AMIODARONE 200 MG TABLET PO SCH ×2 (08:57→21:19)
[2017-01-20] MEDS: DOCUSATE 50 MG/5 ML, 10ML UDC NG SCH (08:57)
[2017-01-20] MEDS ORDERED: MIDAZOLAM 1 MG/ML, 5ML IV PRN (09:00)
[2017-01-21] MEDS: ALBUTEROL/IPRATROPIUM 2.5MG/0.5MG, 3 ML INLINE SCH ×6 (02:39→23:00)
[2017-01-21] MEDS: HEPARIN 5,000 UNITS/ML, 1ML SQ SCH ×3 (02:40→17:57)
[2017-01-21] MEDS: DIAZEPAM 5 MG/ML, 10ML VIAL IV SCH ×4 (02:41→20:38)
[2017-01-21 05:00] VITALS: BP 107/57
[2017-01-21] MEDS: LORazepam 2 MG/ML, 1ML IV PRN ×2 (05:11→19:24)
[2017-01-21 05:51] LABS: BASOPHILS # (AUTO) 0.02 x10^3/uL (0-0.1); BASOPHILS % (AUTO) 0 % (0-1); EOSINOPHILS % (AUTO) 1 % (1-7); LYMPHOCYTES # (AUTO) 0.97 x10^3/uL (1-3.4); LYMPHOCYTES % (AUTO) 13 % (22-44); MD NO; MEAN CORPUSCULAR HEMOGLOBIN 30.9 pg (27.5-34.5); MEAN CORPUSCULAR HGB CONC 33.8 g/dL (33.2-36.2); MEAN CORPUSCULAR VOLUME 91.6 fL (81-97); MEAN PLATELET VOLUME 12.1 fL (7.4-10.4); MONOCYTES # (AUTO) 0.46 x10^3/uL (0.2-0.8); MONOCYTES % (AUTO) 6 % (2-9); NEUTROPHILS # (AUTO) 5.74 x10^3/uL (1.8-6.8); NEUTROPHILS % (AUTO) 79 % (42-75); PLATELET COUNT 180 x10^3/uL (130-400); RED BLOOD COUNT 2.48 x10^6/uL (4.38-5.82); RED CELL DISTRIBUTION WIDTH 13.9 % (9.4-14.8)
[2017-01-21 06:02] LABS: ANION GAP 7 mmol/L (5-15); CALCIUM 7.9 mg/dL (8.5-10.1); CHLORIDE 118 mmol/L (98-107); CREATININE 1.72 mg/dL (0.7-1.3)
[2017-01-21] MEDS: DOCUSATE 50 MG/5 ML, 10ML UDC NG SCH (09:15)
[2017-01-21] MEDS: AMIODARONE 200 MG TABLET PO SCH ×2 (09:15→22:17)
[2017-01-21] MEDS: QUETIAPINE 100MG TABLET PO SCH ×3 (09:15→22:17)
[2017-01-21] MEDS: FAMOTIDINE 20 MG/2 ML IVPush SCH (09:15)
[2017-01-21] MEDS: methylPREDNISolone SOD SUCC 125 MG/2 ML IVPush SCH (09:15)
[2017-01-21] MEDS ORDERED: VANCOMYCIN PER PHARMACY MC PRN (13:30)
[2017-01-21] MEDS ORDERED: VANCOMYCIN PMX 1GM/200ML 200 ML IV ONE (14:00)
[2017-01-21] MEDS ORDERED: PHARMACOKINETIC CONSULTATION MC ONE (14:00)
[2017-01-21] MEDS ORDERED: PHARMACOKINETIC MONITORING MC PRN (14:00)
[2017-01-21] MEDS: FENTANYL PF 100 MCG/2ML IVPush PRN (14:34)
[2017-01-21] MEDS: IRON SUCROSE COMPLEX 100MG/5ML IV SCH (17:57)
[2017-01-21] MEDS ORDERED: ARANESP 60 MCG/ML **ESRD SQ SCH (18:00)
[2017-01-21] MEDS ORDERED: ERGOCALCIFEROL 8,000UNIT/ML PO SCH (18:00)
[2017-01-21] MEDS ORDERED: ERGOCALCIFEROL 50,000 UNIT CAPSULE PO SCH (18:00)
[2017-01-21] MEDS ORDERED: ARANESP 40 MCG/ML **ESRD SQ SCH (18:00)
[2017-01-21 18:23] LABS: CALCIUM 7.8 mg/dL (8.5-10.1)
[2017-01-21] MEDS: ERGOCALCIFEROL 8,000UNIT/ML PO SCH (18:38)
[2017-01-21] MEDS: LACTULOSE 20 GM/30 ML UDC PO PRN (23:59)
[2017-01-22] MEDS ORDERED: VANCOMYCIN PMX 1GM/200ML 200 ML IV SCH (02:00)
[2017-01-22] MEDS: HEPARIN 5,000 UNITS/ML, 1ML SQ SCH ×3 (02:04→16:36)
[2017-01-22] MEDS: ALBUTEROL/IPRATROPIUM 2.5MG/0.5MG, 3 ML INLINE SCH ×2 (02:40→07:00)
[2017-01-22] MEDS: DIAZEPAM 5 MG/ML, 10ML VIAL IV SCH ×2 (03:10→09:00)
[2017-01-22 05:00] VITALS: BP 106/67
[2017-01-22 05:04] LABS: ANION GAP 7 mmol/L (5-15); CHLORIDE 115 mmol/L (98-107); CREATININE 1.35 mg/dL (0.7-1.3)
[2017-01-22 05:26] LABS: BASOPHILS % (AUTO) 0 % (0-1); EOSINOPHILS # (AUTO) 0.07 x10^3/uL (0-0.4); EOSINOPHILS % (AUTO) 1 % (1-7); LYMPHOCYTES # (AUTO) 0.89 x10^3/uL (1-3.4); LYMPHOCYTES % (AUTO) 9 % (22-44); MD NO; MEAN CORPUSCULAR HEMOGLOBIN 31.2 pg (27.5-34.5); MEAN CORPUSCULAR HGB CONC 34.1 g/dL (33.2-36.2); MEAN CORPUSCULAR VOLUME 91.3 fL (81-97); MEAN PLATELET VOLUME 11.3 fL (7.4-10.4); MONOCYTES # (AUTO) 0.67 x10^3/uL (0.2-0.8); MONOCYTES % (AUTO) 7 % (2-9); NEUTROPHILS # (AUTO) 8.57 x10^3/uL (1.8-6.8); NEUTROPHILS % (AUTO) 84 % (42-75); PLATELET COUNT 225 x10^3/uL (130-400); RED BLOOD COUNT 2.66 x10^6/uL (4.38-5.82); RED CELL DISTRIBUTION WIDTH 13.9 % (9.4-14.8)
[2017-01-22] MEDS: LORazepam 2 MG/ML, 1ML IV PRN (07:18)
[2017-01-22] MEDS: methylPREDNISolone SOD SUCC 40 MG/ML IVPush SCH (08:53)
[2017-01-22] MEDS: FAMOTIDINE 20 MG/2 ML IVPush SCH (08:54)
[2017-01-22] MEDS: AMIODARONE 200 MG TABLET PO SCH ×2 (08:54→20:25)
[2017-01-22] MEDS: QUETIAPINE 100MG TABLET PO SCH ×3 (08:54→22:57)
[2017-01-22] MEDS: DOCUSATE 50 MG/5 ML, 10ML UDC NG SCH (08:54)
[2017-01-22] MEDS ORDERED: ALBUTEROL SULFATE 2.5 MG/3 ML NPPB PRN (13:00)
[2017-01-22] MEDS: DOXYCYCLINE 100 MG in DEXTROSE 5% 250 ML IV SCH (13:31)
[2017-01-22] MEDS: IRON SUCROSE COMPLEX 100MG/5ML IV SCH (16:36)
[2017-01-23] MEDS: HEPARIN 5,000 UNITS/ML, 1ML SQ SCH ×3 (01:20→17:49)
[2017-01-23] MEDS: DOXYCYCLINE 100 MG in DEXTROSE 5% 250 ML IV SCH ×2 (01:20→14:21)
[2017-01-23] MEDS: LORazepam 2 MG/ML, 1ML IV PRN (04:45)
[2017-01-23 05:18] VITALS: BP 111/68
[2017-01-23 06:07] LABS: MEAN CORPUSCULAR HEMOGLOBIN 30.4 pg (27.5-34.5); MEAN CORPUSCULAR HGB CONC 33.1 g/dL (33.2-36.2); MEAN CORPUSCULAR VOLUME 91.8 fL (81-97); MEAN PLATELET VOLUME 10.9 fL (7.4-10.4); PLATELET COUNT 245 x10^3/uL (130-400); RED BLOOD COUNT 2.77 x10^6/uL (4.38-5.82); RED CELL DISTRIBUTION WIDTH 14.1 % (9.4-14.8)
[2017-01-23 06:18] LABS: ANION GAP 6 mmol/L (5-15); CALCIUM 8.1 mg/dL (8.5-10.1); CHLORIDE 116 mmol/L (98-107); CREATININE 1.35 mg/dL (0.7-1.3)
[2017-01-23 06:35] LABS: BASOPHILS # (AUTO) 0.03 x10^3/uL (0-0.1); BASOPHILS % (AUTO) 0 % (0-1); EOSINOPHILS % (AUTO) 1 % (1-7); LYMPHOCYTES # (AUTO) 0.63 x10^3/uL (1-3.4); LYMPHOCYTES % (AUTO) 5 % (22-44); MD SCAN; MONOCYTES # (AUTO) 0.66 x10^3/uL (0.2-0.8); MONOCYTES % (AUTO) 6 % (2-9); NEUTROPHILS # (AUTO) 10.26 x10^3/uL (1.8-6.8); NEUTROPHILS % (AUTO) 88 % (42-75)
[2017-01-23] MEDS: methylPREDNISolone SOD SUCC 40 MG/ML IVPush SCH (09:41)
[2017-01-23] MEDS: AMIODARONE 200 MG TABLET PO SCH ×2 (09:42→19:56)
[2017-01-23] MEDS: DOCUSATE 50 MG/5 ML, 10ML UDC NG SCH (09:42)
[2017-01-23] MEDS: QUETIAPINE 25MG TABLET PO SCH ×2 (09:42→19:56)
[2017-01-23] MEDS: ACETYLCYSTEINE 10%, 4ML NPPB SCH ×2 (14:31→21:00)
[2017-01-23] MEDS: ALBUTEROL/IPRATROPIUM 2.5MG/0.5MG, 3 ML NPPB SCH ×2 (14:31→20:50)
[2017-01-23] MEDS ORDERED: SODIUM BICARBONATE 4.2%, 5ML NPPB SCH (15:00)
[2017-01-23] MEDS: IRON SUCROSE COMPLEX 100MG/5ML IV SCH (17:49)
[2017-01-24] MEDS: FENTANYL PF 100 MCG/2ML IVPush PRN (00:04)
[2017-01-24] MEDS: DOXYCYCLINE 100 MG in DEXTROSE 5% 250 ML IV SCH ×2 (01:56→13:46)
[2017-01-24] MEDS: HEPARIN 5,000 UNITS/ML, 1ML SQ SCH ×3 (01:56→18:18)
[2017-01-24] MEDS: ACETYLCYSTEINE 10%, 4ML NPPB SCH ×4 (03:30→21:00)
[2017-01-24] MEDS: ALBUTEROL/IPRATROPIUM 2.5MG/0.5MG, 3 ML NPPB SCH ×4 (03:30→21:00)
[2017-01-24 04:03] LABS: ANION GAP 8 mmol/L (5-15); CALCIUM 8.6 mg/dL (8.5-10.1); CHLORIDE 116 mmol/L (98-107); CREATININE 1.38 mg/dL (0.7-1.3)
[2017-01-24 04:18] LABS: MEAN CORPUSCULAR HGB CONC 33.8 g/dL (33.2-36.2); MEAN CORPUSCULAR VOLUME 91.6 fL (81-97); RED BLOOD COUNT 2.93 x10^6/uL (4.38-5.82)
[2017-01-24 04:19] LABS: PLATELET COUNT 338 x10^3/uL (130-400); RED CELL DISTRIBUTION WIDTH 13.9 % (9.4-14.8)
[2017-01-24 04:37] LABS: MD YES
[2017-01-24 04:40] LABS: ANISOCYTOSIS 1+; BAND#(MANUAL) 0.61 x10^3/uL; BANDS%(MANUAL) 4 % (0-7); LYMPH#(MANUAL) 1.52 x10^3/uL (1-3.4); LYMPHS% (MANUAL) 10 % (22-44); MONOS% (MANUAL) 2 % (2-9); MYELOCYTES# (MANUAL) 0.15 x10^3/uL (0-0); MYELOCYTES% (MANUAL) 1 % (0-0); SEG#(MANUAL) 12.62 x10^3/uL (1.8-6.8); SEGS% (MANUAL) 83 % (42-75)
[2017-01-24 04:41] LABS: HYPOCHROMIA 1+
[2017-01-24 04:42] LABS: <PLATELET ESTIMATE> ADEQUATE
[2017-01-24 04:44] LABS: MEAN PLATELET VOLUME 10.4 fL (7.4-10.4)
[2017-01-24 04:45] LABS: LARGE PLATELETS 1+
[2017-01-24 05:00] VITALS: BP 125/78
[2017-01-24 05:13] LABS: <WBC MORPHOLOGY> NORMAL
[2017-01-24] MEDS ORDERED: MAGNESIUM SULFATE PMX 2GM/50ML 50 ML IV ONE (08:00)
[2017-01-24] MEDS: AMIODARONE 200 MG TABLET PO SCH ×2 (08:53→22:15)
[2017-01-24] MEDS: QUETIAPINE 25MG TABLET PO SCH ×2 (08:54→22:15)
[2017-01-24] MEDS: methylPREDNISolone SOD SUCC 40 MG/ML IVPush SCH (08:54)
[2017-01-24] MEDS: DOCUSATE 50 MG/5 ML, 10ML UDC NG SCH (08:54)
[2017-01-24] MEDS ORDERED: LINEZOLID 20MG/ML ORAL SUSP PO SCH (15:00)
[2017-01-24] MEDS: IRON SUCROSE COMPLEX 100MG/5ML IV SCH (16:27)
[2017-01-24] MEDS: LINEZOLID 600 MG TABLET PO SCH ×2 (16:27→22:15)
[2017-01-24 21:59] VITALS: BP 126/72
[2017-01-25 00:33] VITALS: BP 107/58
[2017-01-25] MEDS: ALBUTEROL/IPRATROPIUM 2.5MG/0.5MG, 3 ML NPPB SCH ×4 (03:00→20:39)
[2017-01-25] MEDS: HEPARIN 5,000 UNITS/ML, 1ML SQ SCH ×3 (03:16→16:58)
[2017-01-25 03:29] VITALS: BP 130/56
[2017-01-25 05:25] LABS: MEAN CORPUSCULAR HEMOGLOBIN 30.8 pg (27.5-34.5); MEAN CORPUSCULAR HGB CONC 33.6 g/dL (33.2-36.2); MEAN CORPUSCULAR VOLUME 91.6 fL (81-97); MEAN PLATELET VOLUME 10.4 fL (7.4-10.4); PLATELET COUNT 378 x10^3/uL (130-400); RED BLOOD COUNT 2.79 x10^6/uL (4.38-5.82); RED CELL DISTRIBUTION WIDTH 14.2 % (9.4-14.8)
[2017-01-25 05:37] LABS: CHLORIDE 118 mmol/L (98-107)
[2017-01-25 05:48] LABS: ALANINE AMINOTRANSFERASE 36 U/L (12-78); ALBUMIN 1.5 g/dL (3.4-5.0); ALKALINE PHOSPHATASE 137 U/L (45-117); ANION GAP 7 mmol/L (5-15); BILIRUBIN,TOTAL 0.7 mg/dL (0.2-1.0); CALCIUM 8.7 mg/dL (8.5-10.1); TOTAL PROTEIN 5.6 g/dL (6.4-8.2)
[2017-01-25 05:57] LABS: BASOPHILS # (AUTO) 0.03 x10^3/uL (0-0.1); BASOPHILS % (AUTO) 0 % (0-1); EOSINOPHILS % (AUTO) 1 % (1-7); LYMPHOCYTES # (AUTO) 0.57 x10^3/uL (1-3.4); LYMPHOCYTES % (AUTO) 4 % (22-44); MD SCAN; MONOCYTES # (AUTO) 0.93 x10^3/uL (0.2-0.8); MONOCYTES % (AUTO) 7 % (2-9); NEUTROPHILS # (AUTO) 12.22 x10^3/uL (1.8-6.8); NEUTROPHILS % (AUTO) 88 % (42-75)
[2017-01-25] MEDS: ACETYLCYSTEINE 10%, 4ML NPPB SCH ×4 (07:00→20:39)
[2017-01-25 07:26] VITALS: BP 121/68
[2017-01-25] MEDS: DOCUSATE 50 MG/5 ML, 10ML UDC NG SCH (08:45)
[2017-01-25] MEDS: LINEZOLID 600 MG TABLET PO SCH ×2 (08:46→20:30)
[2017-01-25] MEDS: QUETIAPINE 25MG TABLET PO SCH ×2 (08:46→20:30)
[2017-01-25] MEDS: AMIODARONE 200 MG TABLET PO SCH ×2 (08:46→20:30)
[2017-01-25] MEDS: DEXTROSE 5% 1,000 ML IV SCH (13:30)
[2017-01-25 13:51] VITALS: BP 111/61
[2017-01-25] MEDS: IRON SUCROSE COMPLEX 100MG/5ML IV SCH (16:51)
[2017-01-25 20:22] VITALS: BP 115/64
[2017-01-26 01:42] VITALS: BP 123/70
[2017-01-26] MEDS: HEPARIN 5,000 UNITS/ML, 1ML SQ SCH ×3 (02:02→17:38)
[2017-01-26] MEDS: DEXTROSE 5% 1,000 ML IV SCH ×2 (05:00→17:36)
[2017-01-26 05:57] LABS: ALBUMIN 1.4 g/dL (3.4-5.0); ANION GAP 8 mmol/L (5-15); CALCIUM 8.5 mg/dL (8.5-10.1); CHLORIDE 116 mmol/L (98-107)
[2017-01-26 06:09] LABS: MEAN CORPUSCULAR HEMOGLOBIN 30.6 pg (27.5-34.5); MEAN CORPUSCULAR HGB CONC 33.2 g/dL (33.2-36.2); MEAN CORPUSCULAR VOLUME 92.1 fL (81-97); PLATELET COUNT 425 x10^3/uL (130-400); RED BLOOD COUNT 2.72 x10^6/uL (4.38-5.82); RED CELL DISTRIBUTION WIDTH 14.4 % (9.4-14.8)
[2017-01-26 06:33] LABS: BASOPHILS % (AUTO) 0 % (0-1); EOSINOPHILS # (AUTO) 0.25 x10^3/uL (0-0.4); EOSINOPHILS % (AUTO) 2 % (1-7); LYMPHOCYTES # (AUTO) 0.75 x10^3/uL (1-3.4); LYMPHOCYTES % (AUTO) 4 % (22-44); MD SCAN; MONOCYTES # (AUTO) 1.18 x10^3/uL (0.2-0.8); MONOCYTES % (AUTO) 7 % (2-9); NEUTROPHILS # (AUTO) 15.06 x10^3/uL (1.8-6.8); NEUTROPHILS % (AUTO) 87 % (42-75)
[2017-01-26] MEDS: DOCUSATE 50 MG/5 ML, 10ML UDC NG SCH (09:00)
[2017-01-26] MEDS: AMIODARONE 200 MG TABLET PO SCH ×3 (09:04→21:00)
[2017-01-26] MEDS: QUETIAPINE 25MG TABLET PO SCH ×3 (09:05→21:00)
[2017-01-26] MEDS: LINEZOLID 600 MG TABLET PO SCH ×3 (09:05→21:00)
[2017-01-26] MEDS: ACETYLCYSTEINE 10%, 4ML NPPB SCH ×3 (09:40→21:00)
[2017-01-26] MEDS: ALBUTEROL/IPRATROPIUM 2.5MG/0.5MG, 3 ML NPPB SCH ×3 (09:40→21:29)
[2017-01-26 09:45] VITALS: BP 127/73
[2017-01-26 16:27] VITALS: BP 118/75
[2017-01-26] MEDS: IRON SUCROSE COMPLEX 100MG/5ML IV SCH (17:36)
[2017-01-26 20:56] VITALS: BP 114/68
[2017-01-27 02:02] VITALS: BP 125/69
[2017-01-27] MEDS: HEPARIN 5,000 UNITS/ML, 1ML SQ SCH ×3 (02:48→17:53)
[2017-01-27 06:21] LABS: MEAN CORPUSCULAR HEMOGLOBIN 31.4 pg (27.5-34.5); MEAN CORPUSCULAR HGB CONC 34.3 g/dL (33.2-36.2); MEAN CORPUSCULAR VOLUME 91.7 fL (81-97); MEAN PLATELET VOLUME 9.3 fL (7.4-10.4); PLATELET COUNT 445 x10^3/uL (130-400); RED BLOOD COUNT 2.86 x10^6/uL (4.38-5.82); RED CELL DISTRIBUTION WIDTH 14.7 % (9.4-14.8)
[2017-01-27 06:24] LABS: CHLORIDE 113 mmol/L (98-107)
[2017-01-27 06:28] LABS: ALBUMIN 1.5 g/dL (3.4-5.0); ANION GAP 8 mmol/L (5-15); CREATININE 1.25 mg/dL (0.7-1.3)
[2017-01-27 06:37] LABS: MD YES
[2017-01-27 06:40] LABS: LYMPH#(MANUAL) 1.06 x10^3/uL (1-3.4); LYMPHS% (MANUAL) 5 % (22-44); METAMYELOCYTES# (MANUAL) 0.63 x10^3/uL (0-0); METAMYELOCYTES% (MANUAL) 3 % (0-1); MYELOCYTES# (MANUAL) 0.21 x10^3/uL (0-0); MYELOCYTES% (MANUAL) 1 % (0-0); SEGS% (MANUAL) 91 % (42-75)
[2017-01-27] MEDS: ALBUTEROL/IPRATROPIUM 2.5MG/0.5MG, 3 ML NPPB SCH ×3 (06:40→20:40)
[2017-01-27] MEDS: ACETYLCYSTEINE 10%, 4ML NPPB SCH ×2 (06:40→14:52)
[2017-01-27 06:41] LABS: ANISOCYTOSIS 1+; POLYCHROMASIA 1+
[2017-01-27 06:42] LABS: <PLATELET ESTIMATE> INCREASED; <PLT MORPHOLOGY> NORMAL PLT MORPH
[2017-01-27] MEDS: DOCUSATE 50 MG/5 ML, 10ML UDC NG SCH (09:00)
[2017-01-27 09:28] VITALS: BP 112/72
[2017-01-27] MEDS: DEXTROSE 5% 1,000 ML IV SCH (09:44)
[2017-01-27] MEDS: AMIODARONE 200 MG TABLET PO SCH (09:46)
[2017-01-27] MEDS: LINEZOLID 600 MG TABLET PO SCH (09:49)
[2017-01-27] MEDS: QUETIAPINE 25MG TABLET PO SCH (09:49)
[2017-01-27] MEDS ORDERED: DEXTROSE 5% 1,000 ML IV SCH (10:34)
[2017-01-27 13:12] LABS: TROPONIN I < 0.015 ng/mL (0.000-0.045)
[2017-01-27 13:39] VITALS: BP 108/80
[2017-01-27] MEDS: IRON SUCROSE COMPLEX 100MG/5ML IV SCH (17:51)
[2017-01-27 18:29] LABS: TROPONIN I < 0.015 ng/mL (0.000-0.045)
[2017-01-27 20:23] VITALS: BP 122/67
[2017-01-28] MEDS ORDERED: HALOPERIDOL 5 MG/ML IV ONE
[2017-01-28] MEDS: AMIODARONE 200 MG TABLET PO SCH ×3 (01:34→21:00)
[2017-01-28] MEDS: LINEZOLID 600 MG TABLET PO SCH ×3 (01:34→21:00)
[2017-01-28] MEDS: QUETIAPINE 25MG TABLET PO SCH ×3 (01:34→21:00)
[2017-01-28] MEDS: HEPARIN 5,000 UNITS/ML, 1ML SQ SCH ×3 (02:21→17:48)
[2017-01-28 03:30] VITALS: BP 110/69
[2017-01-28 06:54] LABS: MEAN CORPUSCULAR HEMOGLOBIN 31.2 pg (27.5-34.5); MEAN CORPUSCULAR HGB CONC 33.8 g/dL (33.2-36.2); MEAN CORPUSCULAR VOLUME 92.2 fL (81-97); MEAN PLATELET VOLUME 8.9 fL (7.4-10.4); PLATELET COUNT 471 x10^3/uL (130-400); RED BLOOD COUNT 3.11 x10^6/uL (4.38-5.82)
[2017-01-28 07:07] LABS: ALBUMIN 1.7 g/dL (3.4-5.0); ANION GAP 8 mmol/L (5-15); CALCIUM 7.7 mg/dL (8.5-10.1); CHLORIDE 110 mmol/L (98-107); CREATININE 1.16 mg/dL (0.7-1.3)
[2017-01-28 08:15] LABS: BASOPHILS % (AUTO) 0 % (0-1); EOSINOPHILS # (AUTO) 0.22 x10^3/uL (0-0.4); EOSINOPHILS % (AUTO) 1 % (1-7); LYMPHOCYTES # (AUTO) 1.06 x10^3/uL (1-3.4); LYMPHOCYTES % (AUTO) 5 % (22-44); MD SCAN; MONOCYTES # (AUTO) 0.79 x10^3/uL (0.2-0.8); MONOCYTES % (AUTO) 4 % (2-9); NEUTROPHILS # (AUTO) 20.01 x10^3/uL (1.8-6.8); NEUTROPHILS % (AUTO) 90 % (42-75)
[2017-01-28 08:20] VITALS: BP 107/69
[2017-01-28] MEDS: DOCUSATE 50 MG/5 ML, 10ML UDC NG SCH (09:00)
[2017-01-28] MEDS: ALBUTEROL/IPRATROPIUM 2.5MG/0.5MG, 3 ML NPPB SCH ×3 (09:21→19:30)
[2017-01-28 12:55] VITALS: BP 122/73
[2017-01-28] MEDS ORDERED: ARANESP 60 MCG/ML **ESRD SQ SCH (15:00)
[2017-01-28] MEDS: IRON SUCROSE COMPLEX 100MG/5ML IV SCH (17:43)
[2017-01-28 20:25] VITALS: BP 111/63
[2017-01-29 02:26] VITALS: BP 125/69
[2017-01-29 05:14] LABS: MEAN CORPUSCULAR HEMOGLOBIN 31.2 pg (27.5-34.5); MEAN CORPUSCULAR HGB CONC 33.6 g/dL (33.2-36.2); MEAN CORPUSCULAR VOLUME 92.9 fL (81-97); MEAN PLATELET VOLUME 8.6 fL (7.4-10.4); PLATELET COUNT 473 x10^3/uL (130-400); RED BLOOD COUNT 3.05 x10^6/uL (4.38-5.82); RED CELL DISTRIBUTION WIDTH 15.6 % (9.4-14.8)
[2017-01-29 05:42] LABS: CHLORIDE 110 mmol/L (98-107)
[2017-01-29 05:45] LABS: ALBUMIN 1.6 g/dL (3.4-5.0); ANION GAP 11 mmol/L (5-15); CALCIUM 7.9 mg/dL (8.5-10.1); CREATININE 0.98 mg/dL (0.7-1.3)
[2017-01-29 06:26] LABS: MD YES
[2017-01-29 06:28] LABS: LYMPH#(MANUAL) 0.44 x10^3/uL (1-3.4); LYMPHS% (MANUAL) 2 % (22-44); MONOS#(MANUAL) 1.11 x10^3/uL (0.3-2.7); MONOS% (MANUAL) 5 % (2-9); MYELOCYTES# (MANUAL) 0.44 x10^3/uL (0-0); MYELOCYTES% (MANUAL) 2 % (0-0); SEGS% (MANUAL) 91 % (42-75)
[2017-01-29 06:29] LABS: ANISOCYTOSIS 1+; POLYCHROMASIA 1+
[2017-01-29 06:30] LABS: <PLATELET ESTIMATE> INCREASED; LARGE PLATELETS 1+
[2017-01-29 08:32] VITALS: BP 109/64
[2017-01-29] MEDS: LINEZOLID 600 MG TABLET PO SCH (09:00)
[2017-01-29] MEDS: DOCUSATE 50 MG/5 ML, 10ML UDC NG SCH (09:00)
[2017-01-29] MEDS: QUETIAPINE 25MG TABLET PO SCH (09:00)
[2017-01-29] MEDS: ALBUTEROL/IPRATROPIUM 2.5MG/0.5MG, 3 ML NPPB SCH ×3 (09:00→21:00)
[2017-01-29] MEDS: AMIODARONE 200 MG TABLET PO SCH (09:00)
[2017-01-29] MEDS ORDERED: POTASSIUM CHLORIDE 20 MEQ in SODIUM CHLORIDE 0.9% 250 ML IV ONE (12:00)
[2017-01-29 14:01] VITALS: BP 99/55
[2017-01-29] MEDS: IRON SUCROSE COMPLEX 100MG/5ML IV SCH (17:06)
[2017-01-29] MEDS: ERGOCALCIFEROL 8,000UNIT/ML PO SCH (17:06)
[2017-01-29 21:22] VITALS: BP 112/68
[2017-01-30] MEDS: AMIODARONE 200 MG TABLET PO SCH ×3 (00:31→20:22)
[2017-01-30] MEDS: LINEZOLID 600 MG TABLET PO SCH ×3 (00:31→20:20)
[2017-01-30] MEDS: QUETIAPINE 25MG TABLET PO SCH ×3 (00:31→20:36)
[2017-01-30 00:32] VITALS: BP 106/63
[2017-01-30 04:09] LABS: MEAN CORPUSCULAR HEMOGLOBIN 31.3 pg (27.5-34.5); MEAN CORPUSCULAR VOLUME 92.2 fL (81-97); MEAN PLATELET VOLUME 8.4 fL (7.4-10.4); PLATELET COUNT 462 x10^3/uL (130-400); RED BLOOD COUNT 2.61 x10^6/uL (4.38-5.82); RED CELL DISTRIBUTION WIDTH 16.1 % (9.4-14.8)
[2017-01-30 04:18] LABS: ALANINE AMINOTRANSFERASE 61 U/L (12-78); ALBUMIN 1.5 g/dL (3.4-5.0); ANION GAP 10 mmol/L (5-15); CALCIUM 7.4 mg/dL (8.5-10.1); CHLORIDE 115 mmol/L (98-107); CREATININE 1.03 mg/dL (0.7-1.3)
[2017-01-30 04:20] LABS: ALKALINE PHOSPHATASE 92 U/L (45-117); BILIRUBIN,TOTAL 0.2 mg/dL (0.2-1.0); TOTAL PROTEIN 5.2 g/dL (6.4-8.2)
[2017-01-30 06:40] LABS: BASOPHILS # (AUTO) 0.05 x10^3/uL (0-0.1); BASOPHILS % (AUTO) 0 % (0-1); EOSINOPHILS # (AUTO) 0.07 x10^3/uL (0-0.4); EOSINOPHILS % (AUTO) 0 % (1-7); LYMPHOCYTES # (AUTO) 0.77 x10^3/uL (1-3.4); LYMPHOCYTES % (AUTO) 4 % (22-44); MD SCAN; MONOCYTES # (AUTO) 1.11 x10^3/uL (0.2-0.8); MONOCYTES % (AUTO) 6 % (2-9); NEUTROPHILS # (AUTO) 18.27 x10^3/uL (1.8-6.8); NEUTROPHILS % (AUTO) 90 % (42-75)
[2017-01-30 07:44] VITALS: BP 100/58
[2017-01-30] MEDS ORDERED: LORazepam 2 MG/ML, 1ML IVPush PRN (08:30)
[2017-01-30] MEDS ORDERED: LABETALOL 5MG/ML, 20ML IV PRN (08:30)
[2017-01-30] MEDS ORDERED: HYDROmorphone 1 MG/ML, 1ML IV PRN (08:30)
[2017-01-30] MEDS ORDERED: PROMETHAZINE 25 MG/ML, 1ML IV PRN (08:30)
[2017-01-30] MEDS ORDERED: ONDANSETRON 2MG/ML, 2ML IVPush PRN (08:30)
[2017-01-30] MEDS ORDERED: MIDAZOLAM 1 MG/ML, 2ML IV PRN (08:30)
[2017-01-30] MEDS ORDERED: MEPERIDINE/PF 25MG/0.5ML IVPush PRN (08:30)
[2017-01-30] MEDS ORDERED: hydrALAzine 20 MG/ML, 1ML IV PRN (08:30)
[2017-01-30] MEDS ORDERED: DIAZEPAM 5 MG/ML, 2ML IVPush PRN (08:30)
[2017-01-30] MEDS ORDERED: ALBUTEROL/IPRATROPIUM 2.5MG/0.5MG, 3 ML NPPB PRN (08:30)
[2017-01-30] MEDS ORDERED: ACETAMINOPHEN 325 MG TABLET PO PRN (08:30)
[2017-01-30] MEDS ORDERED: FENTANYL PF 100 MCG/2ML IV PRN (08:30)
[2017-01-30] MEDS: DOCUSATE 50 MG/5 ML, 10ML UDC NG SCH (09:00)
[2017-01-30] MEDS ORDERED: CEFAZOLIN 1,000 MG ONE (09:05)
[2017-01-30] MEDS ORDERED: SODIUM CHLORIDE 0.9% 100 ML ONE (09:06)
[2017-01-30] MEDS ORDERED: PROPOFOL 10 MG/ML, 20ML ONE (09:26)
[2017-01-30] MEDS: OXYcodone 5 MG/5 ML ORAL.SOL UDC PO PRN (11:15)
[2017-01-30] MEDS: DEXTROSE 5% 1,000 ML IV SCH (13:03)
[2017-01-30 14:00] VITALS: BP 108/54
[2017-01-30 19:53] VITALS: BP 96/55
[2017-01-30] MEDS: PANTOPRAZOLE 40 MG IV IVPush SCH (20:18)
[2017-01-31] MEDS: DEXTROSE 5% 1,000 ML IV SCH (00:27)
[2017-01-31 00:50] VITALS: BP 103/61
[2017-01-31 06:08] LABS: MEAN CORPUSCULAR HEMOGLOBIN 31.7 pg (27.5-34.5); MEAN CORPUSCULAR HGB CONC 33.8 g/dL (33.2-36.2); MEAN CORPUSCULAR VOLUME 93.9 fL (81-97); MEAN PLATELET VOLUME 8.5 fL (7.4-10.4); PLATELET COUNT 408 x10^3/uL (130-400); RED BLOOD COUNT 2.69 x10^6/uL (4.38-5.82); RED CELL DISTRIBUTION WIDTH 16.6 % (9.4-14.8)
[2017-01-31 06:14] LABS: ALBUMIN 1.4 g/dL (3.4-5.0); ANION GAP 8 mmol/L (5-15); CALCIUM 7.5 mg/dL (8.5-10.1); CHLORIDE 114 mmol/L (98-107)
[2017-01-31 06:17] LABS: ALANINE AMINOTRANSFERASE 51 U/L (12-78); ALKALINE PHOSPHATASE 97 U/L (45-117); BILIRUBIN,TOTAL 0.6 mg/dL (0.2-1.0); CREATININE 1.02 mg/dL (0.7-1.3); TOTAL PROTEIN 5.1 g/dL (6.4-8.2)
[2017-01-31 06:30] LABS: BASOPHILS % (AUTO) 0 % (0-1); EOSINOPHILS # (AUTO) 0.12 x10^3/uL (0-0.4); EOSINOPHILS % (AUTO) 1 % (1-7); LYMPHOCYTES # (AUTO) 0.46 x10^3/uL (1-3.4); LYMPHOCYTES % (AUTO) 3 % (22-44); MD SCAN; MONOCYTES # (AUTO) 0.57 x10^3/uL (0.2-0.8); MONOCYTES % (AUTO) 4 % (2-9); NEUTROPHILS # (AUTO) 14.86 x10^3/uL (1.8-6.8); NEUTROPHILS % (AUTO) 93 % (42-75)
[2017-01-31] MEDS: ACETAMINOPHEN 325 MG TABLET PO PRN (07:24)
[2017-01-31 08:17] VITALS: BP 108/58
[2017-01-31] MEDS ORDERED: POTASSIUM PHOSPHATE 44 MEQ in SODIUM CHLORIDE 0.9% 500 ML IV ONE (08:30)
[2017-01-31] MEDS ORDERED: MORPHINE SULFATE 4 MG/ML, 1ML IVPush PRN ×2 (08:30)
[2017-01-31] MEDS: DOCUSATE 50 MG/5 ML, 10ML UDC NG SCH (09:00)
[2017-01-31] MEDS: QUETIAPINE 25MG TABLET PO SCH ×2 (09:24→21:17)
[2017-01-31] MEDS: AMIODARONE 200 MG TABLET PO SCH ×2 (09:24→21:17)
[2017-01-31] MEDS: PANTOPRAZOLE 40 MG IV IVPush SCH ×2 (09:24→21:18)
[2017-01-31] MEDS: LINEZOLID 600 MG TABLET PO SCH ×2 (09:25→21:17)
[2017-01-31] MEDS: POTASSIUM CHLORIDE 10% 40 MEQ/30 ML UDC PO SCH ×2 (11:42→21:18)
[2017-01-31 14:15] VITALS: BP 92/55
[2017-01-31] MEDS ORDERED: POTASSIUM CHLORIDE 20 MEQ TAB.ER.PRT PO SCH (17:00)
[2017-01-31 19:16] VITALS: BP 106/60
[2017-01-31 22:13] VITALS: BP 105/65
[2017-02-01] MEDS: OXYcodone 5 MG/5 ML ORAL.SOL UDC PO PRN (00:27)
[2017-02-01 04:33] LABS: MEAN CORPUSCULAR HEMOGLOBIN 32.1 pg (27.5-34.5); MEAN CORPUSCULAR HGB CONC 34.2 g/dL (33.2-36.2); MEAN CORPUSCULAR VOLUME 93.7 fL (81-97); MEAN PLATELET VOLUME 8.3 fL (7.4-10.4); PLATELET COUNT 336 x10^3/uL (130-400); RED BLOOD COUNT 2.88 x10^6/uL (4.38-5.82); RED CELL DISTRIBUTION WIDTH 17.4 % (9.4-14.8)
[2017-02-01 04:43] LABS: ALBUMIN 1.4 g/dL (3.4-5.0); ANION GAP 5 mmol/L (5-15); CALCIUM 7.3 mg/dL (8.5-10.1); CHLORIDE 116 mmol/L (98-107)
[2017-02-01 04:46] LABS: ALANINE AMINOTRANSFERASE 54 U/L (12-78); ALKALINE PHOSPHATASE 106 U/L (45-117); BILIRUBIN,TOTAL 0.3 mg/dL (0.2-1.0); CREATININE 1.39 mg/dL (0.7-1.3); TOTAL PROTEIN 5.3 g/dL (6.4-8.2)
[2017-02-01 05:18] LABS: BASOPHILS % (AUTO) 0 % (0-1); EOSINOPHILS # (AUTO) 0.01 x10^3/uL (0-0.4); EOSINOPHILS % (AUTO) 0 % (1-7); LYMPHOCYTES # (AUTO) 0.48 x10^3/uL (1-3.4); LYMPHOCYTES % (AUTO) 2 % (22-44); MD SCAN; MONOCYTES # (AUTO) 0.68 x10^3/uL (0.2-0.8); MONOCYTES % (AUTO) 3 % (2-9); NEUTROPHILS # (AUTO) 20.25 x10^3/uL (1.8-6.8); NEUTROPHILS % (AUTO) 95 % (42-75)
[2017-02-01] MEDS: QUETIAPINE 25MG TABLET PO SCH ×2 (08:35→21:08)
[2017-02-01] MEDS: DOCUSATE 50 MG/5 ML, 10ML UDC NG SCH (08:35)
[2017-02-01] MEDS: AMIODARONE 200 MG TABLET PO SCH ×2 (08:35→21:08)
[2017-02-01] MEDS: PANTOPRAZOLE 40 MG IV IVPush SCH (08:35)
[2017-02-01 09:00] VITALS: BP 93/65
[2017-02-01 09:34] LABS: CULTURE INDICATED? YES; MICROSCOPIC INDICATED
[2017-02-01 09:59] LABS: CLOSTRIDIUM DIFFICILE ANTIGEN NEGATIVE; CLOSTRIDIUM DIFFICILE TOXIN NEGATIVE (Negative)
[2017-02-01] MEDS ORDERED: SODIUM CHLORIDE 0.9%, 500ML IVBOLUS ONE (11:00)
[2017-02-01] MEDS: MICAFUNGIN 100 MG in SODIUM CHLORIDE 0.9% 100 ML IV SCH (11:22)
[2017-02-02 04:52] LABS: MEAN CORPUSCULAR HEMOGLOBIN 31.3 pg (27.5-34.5); MEAN CORPUSCULAR HGB CONC 33.3 g/dL (33.2-36.2); MEAN CORPUSCULAR VOLUME 94.1 fL (81-97); MEAN PLATELET VOLUME 8.4 fL (7.4-10.4); PLATELET COUNT 264 x10^3/uL (130-400); RED BLOOD COUNT 2.73 x10^6/uL (4.38-5.82); RED CELL DISTRIBUTION WIDTH 17.8 % (9.4-14.8)
[2017-02-02 04:57] LABS: ANION GAP 5 mmol/L (5-15); CALCIUM 7.5 mg/dL (8.5-10.1); CHLORIDE 118 mmol/L (98-107); CREATININE 1.22 mg/dL (0.7-1.3)
[2017-02-02 05:44] LABS: BASOPHILS % (AUTO) 0 % (0-1); EOSINOPHILS # (AUTO) 0.03 x10^3/uL (0-0.4); EOSINOPHILS % (AUTO) 0 % (1-7); LYMPHOCYTES # (AUTO) 0.82 x10^3/uL (1-3.4); LYMPHOCYTES % (AUTO) 5 % (22-44); MD SCAN; MONOCYTES # (AUTO) 0.59 x10^3/uL (0.2-0.8); MONOCYTES % (AUTO) 4 % (2-9); NEUTROPHILS # (AUTO) 14.53 x10^3/uL (1.8-6.8); NEUTROPHILS % (AUTO) 91 % (42-75)
[2017-02-02] MEDS ORDERED: MAGNESIUM SULFATE PMX 2GM/50ML 50 ML IV ONE (08:00)
[2017-02-02] MEDS: DOCUSATE 50 MG/5 ML, 10ML UDC NG SCH (09:00)
[2017-02-02] MEDS ORDERED: SODIUM CHLORIDE 0.9% 1,000ML IVBOLUS ONE (09:00)
[2017-02-02] MEDS: QUETIAPINE 25MG TABLET PO SCH ×2 (09:21→22:52)
[2017-02-02 09:22] VITALS: BP 87/55
[2017-02-02] MEDS: AMIODARONE 200 MG TABLET PO SCH ×2 (09:22→22:52)
[2017-02-02] MEDS: MICAFUNGIN 100 MG in SODIUM CHLORIDE 0.9% 100 ML IV SCH (11:59)
[2017-02-02] MEDS: NOREPINEPHRINE 4 MG in SODIUM CHLORIDE 0.9% 246 ML IV PRN ×2 (13:56→23:07)
[2017-02-02] MEDS: ARANESP 100 MCG/ML **ESRD SQ SCH (13:59)
[2017-02-02] MEDS: HEPARIN 5,000 UNITS/ML, 1ML SQ SCH ×2 (17:36→22:52)
[2017-02-03 06:09] LABS: ANION GAP 6 mmol/L (5-15); CHLORIDE 119 mmol/L (98-107); CREATININE 1.09 mg/dL (0.7-1.3)
[2017-02-03 06:16] LABS: MEAN CORPUSCULAR HEMOGLOBIN 31.5 pg (27.5-34.5); MEAN CORPUSCULAR HGB CONC 33.9 g/dL (33.2-36.2); MEAN CORPUSCULAR VOLUME 93.1 fL (81-97); MEAN PLATELET VOLUME 8.9 fL (7.4-10.4); PLATELET COUNT 203 x10^3/uL (130-400); RED CELL DISTRIBUTION WIDTH 17.6 % (9.4-14.8)
[2017-02-03] MEDS: NOREPINEPHRINE 4 MG in SODIUM CHLORIDE 0.9% 246 ML IV PRN ×2 (06:42→13:24)
[2017-02-03 07:32] LABS: MD YES
[2017-02-03 07:34] LABS: BAND#(MANUAL) 0.32 x10^3/uL; BANDS%(MANUAL) 3 % (0-7); LYMPH#(MANUAL) 0.64 x10^3/uL (1-3.4); LYMPHS% (MANUAL) 6 % (22-44); MONOS#(MANUAL) 0.21 x10^3/uL (0.3-2.7); MONOS% (MANUAL) 2 % (2-9); SEG#(MANUAL) 9.52 x10^3/uL (1.8-6.8); SEGS% (MANUAL) 89 % (42-75)
[2017-02-03 07:35] LABS: ANISOCYTOSIS 1+
[2017-02-03 07:36] LABS: <PLATELET ESTIMATE> ADEQUATE; <PLT MORPHOLOGY> NORMAL PLT MORPH
[2017-02-03] MEDS: HEPARIN 5,000 UNITS/ML, 1ML SQ SCH ×3 (07:39→23:28)
[2017-02-03 09:00] VITALS: BP 103/58
[2017-02-03] MEDS: AMIODARONE 200 MG TABLET PO SCH ×2 (09:39→20:52)
[2017-02-03] MEDS: DOCUSATE 50 MG/5 ML, 10ML UDC NG SCH (09:39)
[2017-02-03] MEDS: QUETIAPINE 25MG TABLET PO SCH ×2 (09:40→20:52)
[2017-02-03] MEDS: MICAFUNGIN 100 MG in SODIUM CHLORIDE 0.9% 100 ML IV SCH (10:45)
[2017-02-03] MEDS: VASOPRESSIN 100 UNIT in SODIUM CHLORIDE 0.9% 495 ML IV PRN (11:00)
[2017-02-03] MEDS ORDERED: SODIUM CHLORIDE 0.45% 1,000 ML IV SCH (11:00)
[2017-02-03] MEDS: LINEZOLID PMX 600MG/300ML 300 ML IV SCH ×2 (12:34→23:28)
[2017-02-03] MEDS: DEXTROSE 5% 1,000 ML IV SCH (12:43)
[2017-02-03] MEDS: FLUCONAZOLE 200 MG/100 ML 100 ML IV SCH (15:40)
[2017-02-04] MEDS: DEXTROSE 5% 1,000 ML IV SCH ×2 (04:10→20:44)
[2017-02-04 04:48] LABS: ANION GAP 6 mmol/L (5-15); CALCIUM 6.4 mg/dL (8.5-10.1); CHLORIDE 115 mmol/L (98-107); CREATININE 0.84 mg/dL (0.7-1.3)
[2017-02-04 04:51] LABS: MEAN CORPUSCULAR HGB CONC 33.1 g/dL (33.2-36.2); MEAN CORPUSCULAR VOLUME 93.5 fL (81-97); MEAN PLATELET VOLUME 9.1 fL (7.4-10.4); PLATELET COUNT 164 x10^3/uL (130-400); RED BLOOD COUNT 2.28 x10^6/uL (4.38-5.82); RED CELL DISTRIBUTION WIDTH 17.2 % (9.4-14.8)
[2017-02-04 04:54] LABS: BASOPHILS % (AUTO) 0 % (0-1); EOSINOPHILS # (AUTO) 0.02 x10^3/uL (0-0.4); EOSINOPHILS % (AUTO) 0 % (1-7); LYMPHOCYTES # (AUTO) 0.86 x10^3/uL (1-3.4); LYMPHOCYTES % (AUTO) 12 % (22-44); MD SCAN; MONOCYTES # (AUTO) 0.41 x10^3/uL (0.2-0.8); MONOCYTES % (AUTO) 5 % (2-9); NEUTROPHILS # (AUTO) 6.17 x10^3/uL (1.8-6.8); NEUTROPHILS % (AUTO) 83 % (42-75)
[2017-02-04] MEDS: QUETIAPINE 25MG TABLET PO SCH ×2 (07:54→21:47)
[2017-02-04] MEDS: AMIODARONE 200 MG TABLET PO SCH (07:54)
[2017-02-04] MEDS: HEPARIN 5,000 UNITS/ML, 1ML SQ SCH ×3 (07:54→23:12)
[2017-02-04] MEDS: DOCUSATE 50 MG/5 ML, 10ML UDC NG SCH (07:55)
[2017-02-04 09:00] VITALS: BP 94/64
[2017-02-04] MEDS: NOREPINEPHRINE 4 MG in SODIUM CHLORIDE 0.9% 246 ML IV PRN ×2 (10:28→21:47)
[2017-02-04] MEDS ORDERED: GUAIFENESIN ER 600 MG TABLET PO SCH (10:31)
[2017-02-04] MEDS ORDERED: MAGNESIUM SULFATE PMX 2GM/50ML 50 ML IV ONE (11:00)
[2017-02-04] MEDS ORDERED: ALBUTEROL SULFATE 2.5 MG/3 ML NPPB PRN (12:00)
[2017-02-04] MEDS: ACETAMINOPHEN 325 MG TABLET PO PRN (12:20)
[2017-02-04] MEDS: LINEZOLID PMX 600MG/300ML 300 ML IV SCH ×2 (12:21→23:13)
[2017-02-04] MEDS: FLUCONAZOLE 200 MG/100 ML 100 ML IV SCH (14:32)
[2017-02-04] MEDS: GUAIFENESIN 100 MG/5 ML PO SCH (21:46)
[2017-02-05 06:09] LABS: MEAN CORPUSCULAR HEMOGLOBIN 31.4 pg (27.5-34.5); MEAN CORPUSCULAR HGB CONC 33.9 g/dL (33.2-36.2); MEAN CORPUSCULAR VOLUME 92.8 fL (81-97); MEAN PLATELET VOLUME 8.9 fL (7.4-10.4); PLATELET COUNT 160 x10^3/uL (130-400); RED BLOOD COUNT 2.24 x10^6/uL (4.38-5.82); RED CELL DISTRIBUTION WIDTH 16.9 % (9.4-14.8)
[2017-02-05 06:19] LABS: ALANINE AMINOTRANSFERASE 56 U/L (12-78); ALBUMIN 1.2 g/dL (3.4-5.0); ANION GAP 7 mmol/L (5-15); CALCIUM 6.6 mg/dL (8.5-10.1); CHLORIDE 107 mmol/L (98-107); CREATININE 0.77 mg/dL (0.7-1.3)
[2017-02-05 06:22] LABS: ALKALINE PHOSPHATASE 89 U/L (45-117); BILIRUBIN,TOTAL 0.2 mg/dL (0.2-1.0); TOTAL PROTEIN 4.6 g/dL (6.4-8.2)
[2017-02-05 06:33] LABS: MD YES
[2017-02-05 06:36] LABS: BAND#(MANUAL) 0.48 x10^3/uL; BANDS%(MANUAL) 7 % (0-7); LYMPH#(MANUAL) 0.82 x10^3/uL (1-3.4); LYMPHS% (MANUAL) 12 % (22-44); MONOS#(MANUAL) 0.41 x10^3/uL (0.3-2.7); MONOS% (MANUAL) 6 % (2-9); REACTIVE LYMPHS # (MANUAL) 0.07 x10^3/uL (0-0); REACTIVE LYMPHS % (MANUAL) 1 % (0-0); SEG#(MANUAL) 5.03 x10^3/uL (1.8-6.8); SEGS% (MANUAL) 74 % (42-75)
[2017-02-05 06:39] LABS: <PLATELET ESTIMATE> ADEQUATE; <PLT MORPHOLOGY> NORMAL PLT MORPH; ANISOCYTOSIS 1+; SPHEROCYTES 1+
[2017-02-05] MEDS: DOCUSATE 50 MG/5 ML, 10ML UDC NG SCH (07:16)
[2017-02-05] MEDS: QUETIAPINE 25MG TABLET PO SCH ×2 (07:23→21:24)
[2017-02-05] MEDS: GUAIFENESIN 100 MG/5 ML PO SCH ×2 (07:23→21:00)
[2017-02-05] MEDS: HEPARIN 5,000 UNITS/ML, 1ML SQ SCH ×3 (07:25→21:25)
[2017-02-05] MEDS ORDERED: DEXTROSE 5% 1,000 ML IV SCH (08:01)
[2017-02-05] MEDS ORDERED: POTASSIUM CHLORIDE 20 MEQ TAB.ER.PRT PO ONE (10:00)
[2017-02-05] MEDS ORDERED: SODIUM CHLORIDE 0.45% 1,000 ML IV SCH (10:30)
[2017-02-05] MEDS ORDERED: POTASSIUM CHLORIDE 20 MEQ PACKET PO ONE (11:00)
[2017-02-05 11:30] VITALS: BP 92/56
[2017-02-05 11:45] VITALS: BP 91/62
[2017-02-05 13:25] VITALS: BP 88/54
[2017-02-05] MEDS: LINEZOLID PMX 600MG/300ML 300 ML IV SCH (13:27)
[2017-02-05] MEDS ORDERED: OMNIPAQUE 350 MG/ML, 100ML BOTTLE ONE (15:44)
[2017-02-05] MEDS: FLUCONAZOLE 200 MG/100 ML 100 ML IV SCH (15:57)
[2017-02-05] MEDS: ERGOCALCIFEROL 8,000UNIT/ML PO SCH (17:13)
[2017-02-05] MEDS: VASOPRESSIN 100 UNIT in SODIUM CHLORIDE 0.9% 495 ML IV PRN (21:25)
[2017-02-06] MEDS: LINEZOLID PMX 600MG/300ML 300 ML IV SCH ×3 (00:19→23:52)
[2017-02-06 04:31] LABS: MEAN CORPUSCULAR HEMOGLOBIN 30.6 pg (27.5-34.5); MEAN CORPUSCULAR HGB CONC 33.8 g/dL (33.2-36.2); MEAN CORPUSCULAR VOLUME 90.5 fL (81-97); MEAN PLATELET VOLUME 9.5 fL (7.4-10.4); PLATELET COUNT 123 x10^3/uL (130-400); RED BLOOD COUNT 2.48 x10^6/uL (4.38-5.82); RED CELL DISTRIBUTION WIDTH 17.2 % (9.4-14.8)
[2017-02-06 04:39] LABS: ANION GAP 7 mmol/L (5-15); CALCIUM 6.4 mg/dL (8.5-10.1); CHLORIDE 104 mmol/L (98-107)
[2017-02-06 04:40] LABS: CREATININE 0.63 mg/dL (0.7-1.3)
[2017-02-06] MEDS ORDERED: MAGNESIUM SULFATE 3 GM in SODIUM CHLORIDE 0.9% 100 ML IV ONE (05:00)
[2017-02-06 06:03] LABS: BASOPHILS # (AUTO) 0.02 x10^3/uL (0-0.1); BASOPHILS % (AUTO) 0 % (0-1); EOSINOPHILS # (AUTO) 0.02 x10^3/uL (0-0.4); EOSINOPHILS % (AUTO) 0 % (1-7); LYMPHOCYTES # (AUTO) 0.75 x10^3/uL (1-3.4); LYMPHOCYTES % (AUTO) 11 % (22-44); MD SCAN; MONOCYTES # (AUTO) 0.59 x10^3/uL (0.2-0.8); MONOCYTES % (AUTO) 9 % (2-9); NEUTROPHILS # (AUTO) 5.53 x10^3/uL (1.8-6.8); NEUTROPHILS % (AUTO) 80 % (42-75)
[2017-02-06] MEDS: GUAIFENESIN 100 MG/5 ML PO SCH ×2 (09:00→20:50)
[2017-02-06] MEDS: DOCUSATE 50 MG/5 ML, 10ML UDC NG SCH (09:00)
[2017-02-06] MEDS: HEPARIN 5,000 UNITS/ML, 1ML SQ SCH ×3 (09:17→23:51)
[2017-02-06] MEDS: QUETIAPINE 25MG TABLET PO SCH ×2 (09:19→20:49)
[2017-02-06 10:17] LABS: HIT RESULT NEGATIVE (NEGATIVE)
[2017-02-06 11:30] LABS: OCCULT BLOOD POSITIVE (NEGATIVE)
[2017-02-06] MEDS: FLUCONAZOLE 200 MG/100 ML 100 ML IV SCH (15:08)
[2017-02-07 05:21] LABS: BASOPHILS # (AUTO) 0.01 x10^3/uL (0-0.1); BASOPHILS % (AUTO) 0 % (0-1); EOSINOPHILS # (AUTO) 0.01 x10^3/uL (0-0.4); EOSINOPHILS % (AUTO) 0 % (1-7); LYMPHOCYTES # (AUTO) 0.61 x10^3/uL (1-3.4); LYMPHOCYTES % (AUTO) 7 % (22-44); MD NO; MEAN CORPUSCULAR HEMOGLOBIN 30.8 pg (27.5-34.5); MEAN CORPUSCULAR VOLUME 90.4 fL (81-97); MEAN PLATELET VOLUME 9.2 fL (7.4-10.4); MONOCYTES # (AUTO) 0.69 x10^3/uL (0.2-0.8); MONOCYTES % (AUTO) 8 % (2-9); NEUTROPHILS # (AUTO) 7.14 x10^3/uL (1.8-6.8); NEUTROPHILS % (AUTO) 84 % (42-75); PLATELET COUNT 164 x10^3/uL (130-400); RED BLOOD COUNT 3.23 x10^6/uL (4.38-5.82); RED CELL DISTRIBUTION WIDTH 16.4 % (9.4-14.8)
[2017-02-07 05:27] LABS: ANION GAP 8 mmol/L (5-15); CALCIUM 7.1 mg/dL (8.5-10.1); CHLORIDE 108 mmol/L (98-107)
[2017-02-07 05:28] LABS: CREATININE 0.62 mg/dL (0.7-1.3)
[2017-02-07 06:00] VITALS: BP 103/61
[2017-02-07] MEDS: GUAIFENESIN 100 MG/5 ML PO SCH ×2 (09:00→21:00)
[2017-02-07] MEDS: HEPARIN 5,000 UNITS/ML, 1ML SQ SCH ×2 (10:17→16:18)
[2017-02-07] MEDS: QUETIAPINE 25MG TABLET PO SCH ×2 (10:18→23:09)
[2017-02-07] MEDS: DOCUSATE 50 MG/5 ML, 10ML UDC NG SCH (10:18)
[2017-02-07 12:00] VITALS: BP 105/71
[2017-02-07] MEDS: LINEZOLID PMX 600MG/300ML 300 ML IV SCH (12:51)
[2017-02-07] MEDS: FLUCONAZOLE 200 MG/100 ML 100 ML IV SCH (14:38)
[2017-02-07 19:57] VITALS: BP 108/68
[2017-02-07 23:03] VITALS: BP 102/71
[2017-02-08 01:38] VITALS: BP 106/66
[2017-02-08] MEDS: HEPARIN 5,000 UNITS/ML, 1ML SQ SCH ×3 (01:42→15:31)
[2017-02-08] MEDS: LINEZOLID PMX 600MG/300ML 300 ML IV SCH ×2 (02:02→11:55)
[2017-02-08 04:51] LABS: BASOPHILS # (AUTO) 0.03 x10^3/uL (0-0.1); BASOPHILS % (AUTO) 0 % (0-1); EOSINOPHILS % (AUTO) 1 % (1-7); LYMPHOCYTES # (AUTO) 0.84 x10^3/uL (1-3.4); LYMPHOCYTES % (AUTO) 11 % (22-44); MD NO; MEAN CORPUSCULAR HEMOGLOBIN 31.3 pg (27.5-34.5); MEAN CORPUSCULAR VOLUME 92.1 fL (81-97); MEAN PLATELET VOLUME 9.1 fL (7.4-10.4); MONOCYTES # (AUTO) 0.67 x10^3/uL (0.2-0.8); MONOCYTES % (AUTO) 8 % (2-9); NEUTROPHILS # (AUTO) 6.35 x10^3/uL (1.8-6.8); NEUTROPHILS % (AUTO) 79 % (42-75); PLATELET COUNT 171 x10^3/uL (130-400); RED BLOOD COUNT 3.16 x10^6/uL (4.38-5.82); RED CELL DISTRIBUTION WIDTH 16.9 % (9.4-14.8)
[2017-02-08 05:05] LABS: ANION GAP 7 mmol/L (5-15); CALCIUM 6.6 mg/dL (8.5-10.1); CHLORIDE 109 mmol/L (98-107); CREATININE 0.55 mg/dL (0.7-1.3)
[2017-02-08] MEDS: GUAIFENESIN 100 MG/5 ML PO SCH ×2 (08:31→21:00)
[2017-02-08] MEDS: DOCUSATE 50 MG/5 ML, 10ML UDC NG SCH (08:31)
[2017-02-08] MEDS: QUETIAPINE 25MG TABLET PO SCH ×2 (08:31→21:22)
[2017-02-08 09:05] VITALS: BP 100/64
[2017-02-08] MEDS: FLUCONAZOLE 200 MG/100 ML 100 ML IV SCH (13:20)
[2017-02-08 14:39] VITALS: BP 117/73
[2017-02-08 18:55] VITALS: BP 104/73
[2017-02-09] MEDS: HEPARIN 5,000 UNITS/ML, 1ML SQ SCH ×3 (01:01→14:32)
[2017-02-09] MEDS: LINEZOLID PMX 600MG/300ML 300 ML IV SCH ×2 (01:01→12:10)
[2017-02-09 02:59] VITALS: BP 107/68
[2017-02-09] MEDS ORDERED: MAGNESIUM SULFATE PMX 4GM/100M 100 ML IV ONE (05:00)
[2017-02-09 05:33] LABS: BASOPHILS # (AUTO) 0.06 x10^3/uL (0-0.1); BASOPHILS % (AUTO) 1 % (0-1); EOSINOPHILS # (AUTO) 0.18 x10^3/uL (0-0.4); EOSINOPHILS % (AUTO) 2 % (1-7); LYMPHOCYTES % (AUTO) 10 % (22-44); MD NO; MEAN CORPUSCULAR HEMOGLOBIN 30.8 pg (27.5-34.5); MEAN CORPUSCULAR HGB CONC 33.6 g/dL (33.2-36.2); MEAN CORPUSCULAR VOLUME 91.5 fL (81-97); MEAN PLATELET VOLUME 8.3 fL (7.4-10.4); MONOCYTES # (AUTO) 0.86 x10^3/uL (0.2-0.8); MONOCYTES % (AUTO) 10 % (2-9); NEUTROPHILS # (AUTO) 6.96 x10^3/uL (1.8-6.8); NEUTROPHILS % (AUTO) 78 % (42-75); PLATELET COUNT 201 x10^3/uL (130-400); RED BLOOD COUNT 3.06 x10^6/uL (4.38-5.82); RED CELL DISTRIBUTION WIDTH 17.2 % (9.4-14.8)
[2017-02-09 05:41] LABS: ANION GAP 8 mmol/L (5-15); CALCIUM 7.5 mg/dL (8.5-10.1); CHLORIDE 109 mmol/L (98-107); CREATININE 0.52 mg/dL (0.7-1.3)
[2017-02-09 06:43] LABS: ALBUMIN 1.2 g/dL (3.4-5.0)
[2017-02-09 07:51] VITALS: BP 110/71
[2017-02-09] MEDS: POTASSIUM CHLORIDE 20 MEQ TAB.ER.PRT PO SCH (08:57)
[2017-02-09] MEDS: DOCUSATE 50 MG/5 ML, 10ML UDC NG SCH (08:57)
[2017-02-09] MEDS: QUETIAPINE 25MG TABLET PO SCH ×2 (08:58→21:13)
[2017-02-09] MEDS: GUAIFENESIN 100 MG/5 ML PO SCH ×2 (08:58→21:16)
[2017-02-09] MEDS: VORICONAZOLE 200 MG TABLET PO SCH ×2 (10:14→21:14)
[2017-02-09] MEDS: ARANESP 100 MCG/ML **ESRD SQ SCH (10:15)
[2017-02-09 13:39] VITALS: BP 114/75
[2017-02-09] MEDS ORDERED: PNEUMOC 13-VALENT VACC, 0.5 ML IM-VACC ONE (15:00)
[2017-02-09] MEDS ORDERED: FLU VACC QS2017-18 (36MOS+) UP/PF 0.5 ML IM-VACC ONE (15:30)
[2017-02-09] MEDS: AMPICILLIN/SULBACTAM 3 GM in SODIUM CHLORIDE 0.9% 100 ML IV SCH ×2 (15:47→21:16)
[2017-02-09 20:24] VITALS: BP 106/75
[2017-02-10] MEDS: LINEZOLID PMX 600MG/300ML 300 ML IV SCH ×2 (00:15→11:42)
[2017-02-10] MEDS: HEPARIN 5,000 UNITS/ML, 1ML SQ SCH ×4 (00:16→23:25)
[2017-02-10 01:31] VITALS: BP 101/66
[2017-02-10] MEDS: AMPICILLIN/SULBACTAM 3 GM in SODIUM CHLORIDE 0.9% 100 ML IV SCH ×4 (03:04→20:42)
[2017-02-10 08:11] VITALS: BP 117/73
[2017-02-10 08:22] LABS: BASOPHILS # (AUTO) 0.01 x10^3/uL (0-0.1); BASOPHILS % (AUTO) 0 % (0-1); EOSINOPHILS # (AUTO) 0.15 x10^3/uL (0-0.4); EOSINOPHILS % (AUTO) 2 % (1-7); LYMPHOCYTES # (AUTO) 0.83 x10^3/uL (1-3.4); LYMPHOCYTES % (AUTO) 10 % (22-44); MD NO; MEAN CORPUSCULAR HEMOGLOBIN 30.8 pg (27.5-34.5); MEAN CORPUSCULAR HGB CONC 33.5 g/dL (33.2-36.2); MEAN CORPUSCULAR VOLUME 91.8 fL (81-97); MEAN PLATELET VOLUME 8.1 fL (7.4-10.4); MONOCYTES # (AUTO) 0.72 x10^3/uL (0.2-0.8); MONOCYTES % (AUTO) 9 % (2-9); NEUTROPHILS # (AUTO) 6.82 x10^3/uL (1.8-6.8); NEUTROPHILS % (AUTO) 80 % (42-75); PLATELET COUNT 216 x10^3/uL (130-400); RED CELL DISTRIBUTION WIDTH 17.1 % (9.4-14.8)
[2017-02-10 08:33] LABS: ANION GAP 8 mmol/L (5-15); CALCIUM 6.9 mg/dL (8.5-10.1); CHLORIDE 108 mmol/L (98-107); CREATININE 0.56 mg/dL (0.7-1.3)
[2017-02-10] MEDS: GUAIFENESIN 100 MG/5 ML PO SCH ×2 (09:00→20:42)
[2017-02-10] MEDS: DOCUSATE 50 MG/5 ML, 10ML UDC NG SCH (09:00)
[2017-02-10] MEDS: POTASSIUM CHLORIDE 20 MEQ TAB.ER.PRT PO SCH (09:59)
[2017-02-10] MEDS: QUETIAPINE 25MG TABLET PO SCH ×2 (09:59→20:43)
[2017-02-10] MEDS: VORICONAZOLE 200 MG TABLET PO SCH ×2 (10:02→20:43)
[2017-02-10 13:50] VITALS: BP 104/66
[2017-02-10 20:24] VITALS: BP 107/67
[2017-02-11] MEDS: LINEZOLID PMX 600MG/300ML 300 ML IV SCH ×2 (00:09→12:46)
[2017-02-11] MEDS: AMPICILLIN/SULBACTAM 3 GM in SODIUM CHLORIDE 0.9% 100 ML IV SCH ×4 (03:14→22:12)
[2017-02-11 03:33] VITALS: BP 101/65
[2017-02-11 05:47] LABS: BASOPHILS # (AUTO) 0.04 x10^3/uL (0-0.1); BASOPHILS % (AUTO) 1 % (0-1); EOSINOPHILS % (AUTO) 2 % (1-7); LYMPHOCYTES # (AUTO) 0.92 x10^3/uL (1-3.4); LYMPHOCYTES % (AUTO) 11 % (22-44); MD NO; MEAN CORPUSCULAR HEMOGLOBIN 31.4 pg (27.5-34.5); MEAN CORPUSCULAR HGB CONC 33.3 g/dL (33.2-36.2); MEAN CORPUSCULAR VOLUME 94.3 fL (81-97); MEAN PLATELET VOLUME 7.7 fL (7.4-10.4); MONOCYTES # (AUTO) 0.84 x10^3/uL (0.2-0.8); MONOCYTES % (AUTO) 10 % (2-9); NEUTROPHILS # (AUTO) 6.68 x10^3/uL (1.8-6.8); NEUTROPHILS % (AUTO) 77 % (42-75); PLATELET COUNT 245 x10^3/uL (130-400); RED BLOOD COUNT 2.96 x10^6/uL (4.38-5.82); RED CELL DISTRIBUTION WIDTH 17.4 % (9.4-14.8)
[2017-02-11 05:53] LABS: ANION GAP 9 mmol/L (5-15); CALCIUM 7.3 mg/dL (8.5-10.1); CHLORIDE 107 mmol/L (98-107); CREATININE 0.66 mg/dL (0.7-1.3)
[2017-02-11 06:58] VITALS: BP 119/72
[2017-02-11] MEDS: HEPARIN 5,000 UNITS/ML, 1ML SQ SCH ×3 (07:30→22:18)
[2017-02-11] MEDS: GUAIFENESIN 100 MG/5 ML PO SCH ×2 (08:52→22:12)
[2017-02-11] MEDS: POTASSIUM CHLORIDE 20 MEQ TAB.ER.PRT PO SCH (08:53)
[2017-02-11] MEDS: QUETIAPINE 25MG TABLET PO SCH ×2 (08:53→22:12)
[2017-02-11] MEDS: VORICONAZOLE 200 MG TABLET PO SCH ×2 (08:53→22:12)
[2017-02-11] MEDS: DOCUSATE 50 MG/5 ML, 10ML UDC NG SCH (08:55)
[2017-02-11 12:59] VITALS: BP 100/65
[2017-02-11 18:42] VITALS: BP 117/71
[2017-02-12] MEDS: LINEZOLID PMX 600MG/300ML 300 ML IV SCH ×2 (01:12→11:43)
[2017-02-12 01:16] VITALS: BP 103/69
[2017-02-12] MEDS: AMPICILLIN/SULBACTAM 3 GM in SODIUM CHLORIDE 0.9% 100 ML IV SCH ×4 (04:14→20:52)
[2017-02-12 04:56] LABS: ALANINE AMINOTRANSFERASE 27 U/L (12-78); ALBUMIN 1.3 g/dL (3.4-5.0); ANION GAP 6 mmol/L (5-15); CALCIUM 7.3 mg/dL (8.5-10.1); CHLORIDE 109 mmol/L (98-107); CREATININE 0.78 mg/dL (0.7-1.3)
[2017-02-12 04:58] LABS: ALKALINE PHOSPHATASE 90 U/L (45-117); BILIRUBIN,TOTAL 0.2 mg/dL (0.2-1.0)
[2017-02-12 05:12] LABS: MEAN CORPUSCULAR HEMOGLOBIN 31.1 pg (27.5-34.5); MEAN CORPUSCULAR HGB CONC 32.9 g/dL (33.2-36.2); MEAN CORPUSCULAR VOLUME 94.5 fL (81-97); MEAN PLATELET VOLUME 7.6 fL (7.4-10.4); PLATELET COUNT 263 x10^3/uL (130-400); RED CELL DISTRIBUTION WIDTH 17.8 % (9.4-14.8)
[2017-02-12 06:02] LABS: ANISOCYTOSIS 1+; BASOPHILS # (AUTO) 0.05 x10^3/uL (0-0.1); BASOPHILS % (AUTO) 1 % (0-1); EOSINOPHILS # (AUTO) 0.14 x10^3/uL (0-0.4); EOSINOPHILS % (AUTO) 2 % (1-7); LYMPHOCYTES % (AUTO) 8 % (22-44); MD MORPH REVIEW ONLY; MONOCYTES # (AUTO) 0.86 x10^3/uL (0.2-0.8); MONOCYTES % (AUTO) 9 % (2-9); NEUTROPHILS # (AUTO) 7.75 x10^3/uL (1.8-6.8); NEUTROPHILS % (AUTO) 81 % (42-75)
[2017-02-12 06:03] LABS: <PLATELET ESTIMATE> ADEQUATE; <PLT MORPHOLOGY> NORMAL PLT MORPH; OVALOCYTES 1+; POLYCHROMASIA 1+
[2017-02-12 08:29] VITALS: BP 107/70
[2017-02-12] MEDS: POTASSIUM CHLORIDE 20 MEQ TAB.ER.PRT PO SCH (08:58)
[2017-02-12] MEDS: QUETIAPINE 25MG TABLET PO SCH ×2 (08:58→20:53)
[2017-02-12] MEDS: HEPARIN 5,000 UNITS/ML, 1ML SQ SCH ×3 (08:58→23:18)
[2017-02-12] MEDS: VORICONAZOLE 200 MG TABLET PO SCH ×2 (08:58→20:54)
[2017-02-12] MEDS: GUAIFENESIN 100 MG/5 ML PO SCH ×2 (08:58→20:52)
[2017-02-12] MEDS: DOCUSATE 50 MG/5 ML, 10ML UDC NG SCH (08:58)
[2017-02-12 12:48] VITALS: BP 96/57
[2017-02-12] MEDS: ERGOCALCIFEROL 8,000UNIT/ML PO SCH (17:43)
[2017-02-12 20:00] VITALS: BP 99/63
[2017-02-13] MEDS: LINEZOLID PMX 600MG/300ML 300 ML IV SCH ×2 (00:13→12:33)
[2017-02-13 01:55] VITALS: BP 96/63
[2017-02-13] MEDS: AMPICILLIN/SULBACTAM 3 GM in SODIUM CHLORIDE 0.9% 100 ML IV SCH ×4 (03:43→21:05)
[2017-02-13 05:56] LABS: BASOPHILS # (AUTO) 0.06 x10^3/uL (0-0.1); BASOPHILS % (AUTO) 1 % (0-1); EOSINOPHILS # (AUTO) 0.11 x10^3/uL (0-0.4); EOSINOPHILS % (AUTO) 1 % (1-7); LYMPHOCYTES # (AUTO) 0.88 x10^3/uL (1-3.4); LYMPHOCYTES % (AUTO) 11 % (22-44); MD NO; MEAN CORPUSCULAR HEMOGLOBIN 31.7 pg (27.5-34.5); MEAN CORPUSCULAR HGB CONC 33.3 g/dL (33.2-36.2); MEAN CORPUSCULAR VOLUME 94.9 fL (81-97); MEAN PLATELET VOLUME 7.2 fL (7.4-10.4); MONOCYTES # (AUTO) 0.85 x10^3/uL (0.2-0.8); MONOCYTES % (AUTO) 11 % (2-9); NEUTROPHILS % (AUTO) 76 % (42-75); PLATELET COUNT 271 x10^3/uL (130-400); RED BLOOD COUNT 2.91 x10^6/uL (4.38-5.82); RED CELL DISTRIBUTION WIDTH 19.5 % (9.4-14.8)
[2017-02-13 06:12] LABS: ANION GAP 7 mmol/L (5-15); CALCIUM 7.6 mg/dL (8.5-10.1); CHLORIDE 109 mmol/L (98-107)
[2017-02-13 06:13] LABS: CREATININE 0.78 mg/dL (0.7-1.3)
[2017-02-13 07:22] VITALS: BP 103/69
[2017-02-13] MEDS: HEPARIN 5,000 UNITS/ML, 1ML SQ SCH ×4 (07:53→22:56)
[2017-02-13] MEDS: POTASSIUM CHLORIDE 20 MEQ TAB.ER.PRT PO SCH (08:50)
[2017-02-13] MEDS: VORICONAZOLE 200 MG TABLET PO SCH ×2 (08:51→21:05)
[2017-02-13] MEDS: GUAIFENESIN 100 MG/5 ML PO SCH ×2 (08:51→21:05)
[2017-02-13] MEDS: QUETIAPINE 25MG TABLET PO SCH ×2 (08:51→21:20)
[2017-02-13] MEDS: DOCUSATE 50 MG/5 ML, 10ML UDC NG SCH (08:54)
[2017-02-13 13:20] VITALS: BP 112/77
[2017-02-13 14:00] VITALS: BP 146/84
[2017-02-13 19:51] VITALS: BP 109/73
[2017-02-14 00:31] VITALS: BP 103/69
[2017-02-14] MEDS: LINEZOLID PMX 600MG/300ML 300 ML IV SCH ×2 (00:43→12:07)
[2017-02-14] MEDS: AMPICILLIN/SULBACTAM 3 GM in SODIUM CHLORIDE 0.9% 100 ML IV SCH ×4 (04:25→21:21)
[2017-02-14 06:21] LABS: BASOPHILS # (AUTO) 0.11 x10^3/uL (0-0.1); BASOPHILS % (AUTO) 2 % (0-1); EOSINOPHILS % (AUTO) 1 % (1-7); LYMPHOCYTES % (AUTO) 12 % (22-44); MD NO; MEAN CORPUSCULAR HEMOGLOBIN 32.4 pg (27.5-34.5); MEAN CORPUSCULAR HGB CONC 33.8 g/dL (33.2-36.2); MEAN CORPUSCULAR VOLUME 95.8 fL (81-97); MEAN PLATELET VOLUME 7.4 fL (7.4-10.4); MONOCYTES # (AUTO) 0.89 x10^3/uL (0.2-0.8); MONOCYTES % (AUTO) 12 % (2-9); NEUTROPHILS # (AUTO) 5.28 x10^3/uL (1.8-6.8); NEUTROPHILS % (AUTO) 73 % (42-75); PLATELET COUNT 283 x10^3/uL (130-400); RED BLOOD COUNT 2.82 x10^6/uL (4.38-5.82); RED CELL DISTRIBUTION WIDTH 20.9 % (9.4-14.8)
[2017-02-14 06:32] LABS: ALANINE AMINOTRANSFERASE 26 U/L (12-78); ALBUMIN 1.5 g/dL (3.4-5.0); ANION GAP 7 mmol/L (5-15); CALCIUM 7.8 mg/dL (8.5-10.1); CHLORIDE 108 mmol/L (98-107); CREATININE 0.81 mg/dL (0.7-1.3)
[2017-02-14 06:38] LABS: ALKALINE PHOSPHATASE 97 U/L (45-117); BILIRUBIN,TOTAL 0.3 mg/dL (0.2-1.0); TOTAL PROTEIN 5.2 g/dL (6.4-8.2)
[2017-02-14 07:01] LABS: SEDIMENTATION RATE 70 mm/hr (0-10)
[2017-02-14 07:46] VITALS: BP 101/64
[2017-02-14] MEDS: HEPARIN 5,000 UNITS/ML, 1ML SQ SCH ×3 (09:34→23:30)
[2017-02-14] MEDS: DOCUSATE 50 MG/5 ML, 10ML UDC NG SCH (09:34)
[2017-02-14] MEDS: POTASSIUM CHLORIDE 20 MEQ TAB.ER.PRT PO SCH (09:35)
[2017-02-14] MEDS: QUETIAPINE 25MG TABLET PO SCH ×2 (09:36→21:22)
[2017-02-14] MEDS: VORICONAZOLE 200 MG TABLET PO SCH ×2 (09:36→21:22)
[2017-02-14] MEDS: GUAIFENESIN 100 MG/5 ML PO SCH ×2 (09:36→21:23)
[2017-02-14 15:21] VITALS: BP 107/74
[2017-02-14] MEDS ORDERED: CALCIUM CARBONATE 500 MG TAB.CHEW PO PRN (17:00)
[2017-02-14 18:55] VITALS: BP 101/65
[2017-02-14] MEDS ORDERED: ONDANSETRON 2MG/ML, 2ML IVPush PRN (23:00)
[2017-02-15 00:22] VITALS: BP 98/62
[2017-02-15] MEDS: LINEZOLID PMX 600MG/300ML 300 ML IV SCH ×2 (00:35→12:16)
[2017-02-15] MEDS: AMPICILLIN/SULBACTAM 3 GM in SODIUM CHLORIDE 0.9% 100 ML IV SCH ×4 (05:30→20:36)
[2017-02-15 06:37] LABS: BASOPHILS # (AUTO) 0.03 x10^3/uL (0-0.1); BASOPHILS % (AUTO) 0 % (0-1); EOSINOPHILS # (AUTO) 0.12 x10^3/uL (0-0.4); EOSINOPHILS % (AUTO) 2 % (1-7); LYMPHOCYTES # (AUTO) 0.68 x10^3/uL (1-3.4); LYMPHOCYTES % (AUTO) 11 % (22-44); MD NO; MEAN CORPUSCULAR HEMOGLOBIN 32.4 pg (27.5-34.5); MEAN CORPUSCULAR HGB CONC 33.3 g/dL (33.2-36.2); MEAN CORPUSCULAR VOLUME 97.4 fL (81-97); MONOCYTES # (AUTO) 0.47 x10^3/uL (0.2-0.8); MONOCYTES % (AUTO) 7 % (2-9); NEUTROPHILS # (AUTO) 5.14 x10^3/uL (1.8-6.8); NEUTROPHILS % (AUTO) 80 % (42-75); PLATELET COUNT 302 x10^3/uL (130-400); RED BLOOD COUNT 2.84 x10^6/uL (4.38-5.82); RED CELL DISTRIBUTION WIDTH 21.9 % (9.4-14.8)
[2017-02-15 06:49] LABS: ANION GAP 8 mmol/L (5-15); CALCIUM 7.8 mg/dL (8.5-10.1); CHLORIDE 109 mmol/L (98-107); CREATININE 0.78 mg/dL (0.7-1.3)
[2017-02-15 07:44] VITALS: BP 93/59
[2017-02-15] MEDS: POTASSIUM CHLORIDE 20 MEQ TAB.ER.PRT PO SCH (10:42)
[2017-02-15] MEDS: DOCUSATE 50 MG/5 ML, 10ML UDC NG SCH (10:42)
[2017-02-15] MEDS: GUAIFENESIN 100 MG/5 ML PO SCH ×2 (10:43→20:37)
[2017-02-15] MEDS: HEPARIN 5,000 UNITS/ML, 1ML SQ SCH ×2 (10:43→16:08)
[2017-02-15] MEDS: QUETIAPINE 25MG TABLET PO SCH ×2 (10:44→20:37)
[2017-02-15] MEDS: VORICONAZOLE 200 MG TABLET PO SCH ×2 (10:44→20:37)
[2017-02-15 13:14] VITALS: BP 101/65
[2017-02-15 19:58] VITALS: BP 103/64
[2017-02-16] MEDS: HEPARIN 5,000 UNITS/ML, 1ML SQ SCH ×3 (00:37→15:55)
[2017-02-16] MEDS: LINEZOLID PMX 600MG/300ML 300 ML IV SCH ×2 (00:37→12:09)
[2017-02-16 00:56] VITALS: BP 96/63
[2017-02-16] MEDS: AMPICILLIN/SULBACTAM 3 GM in SODIUM CHLORIDE 0.9% 100 ML IV SCH ×4 (03:15→20:41)
[2017-02-16 06:21] LABS: BASOPHILS # (AUTO) 0.06 x10^3/uL (0-0.1); BASOPHILS % (AUTO) 1 % (0-1); EOSINOPHILS # (AUTO) 0.13 x10^3/uL (0-0.4); EOSINOPHILS % (AUTO) 2 % (1-7); LYMPHOCYTES # (AUTO) 0.74 x10^3/uL (1-3.4); LYMPHOCYTES % (AUTO) 12 % (22-44); MD NO; MEAN CORPUSCULAR HEMOGLOBIN 32.7 pg (27.5-34.5); MEAN CORPUSCULAR HGB CONC 33.2 g/dL (33.2-36.2); MEAN CORPUSCULAR VOLUME 98.4 fL (81-97); MEAN PLATELET VOLUME 7.2 fL (7.4-10.4); MONOCYTES # (AUTO) 0.74 x10^3/uL (0.2-0.8); MONOCYTES % (AUTO) 13 % (2-9); NEUTROPHILS # (AUTO) 4.29 x10^3/uL (1.8-6.8); NEUTROPHILS % (AUTO) 72 % (42-75); PLATELET COUNT 309 x10^3/uL (130-400); RED BLOOD COUNT 2.62 x10^6/uL (4.38-5.82); RED CELL DISTRIBUTION WIDTH 22.3 % (9.4-14.8)
[2017-02-16 06:32] LABS: ANION GAP 7 mmol/L (5-15); CALCIUM 7.8 mg/dL (8.5-10.1); CHLORIDE 107 mmol/L (98-107)
[2017-02-16 06:33] LABS: CREATININE 0.75 mg/dL (0.7-1.3)
[2017-02-16 07:08] VITALS: BP 130/76
[2017-02-16 07:09] VITALS: BP 111/66
[2017-02-16] MEDS ORDERED: MAGNESIUM SULFATE PMX 2GM/50ML 50 ML IV ONE (09:00)
[2017-02-16] MEDS: DOCUSATE 50 MG/5 ML, 10ML UDC NG SCH (09:52)
[2017-02-16] MEDS: POTASSIUM CHLORIDE 20 MEQ TAB.ER.PRT PO SCH (10:12)
[2017-02-16] MEDS: QUETIAPINE 25MG TABLET PO SCH ×2 (10:12→20:42)
[2017-02-16] MEDS: VORICONAZOLE 200 MG TABLET PO SCH ×2 (10:14→20:41)
[2017-02-16] MEDS: GUAIFENESIN 100 MG/5 ML PO SCH ×2 (10:14→20:41)
[2017-02-16] MEDS: ARANESP 100 MCG/ML **ESRD SQ SCH (10:14)
[2017-02-16 14:09] VITALS: BP 90/57
[2017-02-16 20:02] VITALS: BP 106/68
[2017-02-17] MEDS: LINEZOLID PMX 600MG/300ML 300 ML IV SCH ×2 (00:08→11:59)
[2017-02-17] MEDS: HEPARIN 5,000 UNITS/ML, 1ML SQ SCH ×3 (00:08→14:57)
[2017-02-17 01:19] VITALS: BP 102/63
[2017-02-17] MEDS: AMPICILLIN/SULBACTAM 3 GM in SODIUM CHLORIDE 0.9% 100 ML IV SCH ×4 (03:11→20:44)
[2017-02-17 06:39] LABS: MEAN CORPUSCULAR VOLUME 97.1 fL (81-97); MEAN PLATELET VOLUME 7.1 fL (7.4-10.4); PLATELET COUNT 303 x10^3/uL (130-400); RED BLOOD COUNT 2.65 x10^6/uL (4.38-5.82); RED CELL DISTRIBUTION WIDTH 23.1 % (9.4-14.8)
[2017-02-17 06:48] LABS: ANION GAP 8 mmol/L (5-15); CALCIUM 7.7 mg/dL (8.5-10.1); CHLORIDE 105 mmol/L (98-107); CREATININE 0.79 mg/dL (0.7-1.3)
[2017-02-17 07:15] VITALS: BP 99/64
[2017-02-17 07:30] LABS: BASOPHILS # (AUTO) 0.07 x10^3/uL (0-0.1); BASOPHILS % (AUTO) 1 % (0-1); EOSINOPHILS # (AUTO) 0.09 x10^3/uL (0-0.4); EOSINOPHILS % (AUTO) 1 % (1-7); LYMPHOCYTES # (AUTO) 0.75 x10^3/uL (1-3.4); LYMPHOCYTES % (AUTO) 11 % (22-44); MD SCAN; MONOCYTES # (AUTO) 0.82 x10^3/uL (0.2-0.8); MONOCYTES % (AUTO) 12 % (2-9); NEUTROPHILS # (AUTO) 5.22 x10^3/uL (1.8-6.8); NEUTROPHILS % (AUTO) 75 % (42-75)
[2017-02-17] MEDS: GUAIFENESIN 100 MG/5 ML PO SCH ×2 (09:00→20:42)
[2017-02-17] MEDS: VORICONAZOLE 200 MG TABLET PO SCH ×2 (09:01→20:41)
[2017-02-17] MEDS: POTASSIUM CHLORIDE 20 MEQ TAB.ER.PRT PO SCH (09:01)
[2017-02-17] MEDS: DOCUSATE 50 MG/5 ML, 10ML UDC NG SCH (09:02)
[2017-02-17] MEDS: QUETIAPINE 25MG TABLET PO SCH ×2 (09:02→20:48)
[2017-02-17 13:47] VITALS: BP 111/77
[2017-02-17 19:47] VITALS: BP 122/86
[2017-02-17] MEDS: QUETIAPINE 100MG TABLET PO SCH (20:47)
[2017-02-18] MEDS: LINEZOLID PMX 600MG/300ML 300 ML IV SCH ×2 (00:11→12:06)
[2017-02-18] MEDS: HEPARIN 5,000 UNITS/ML, 1ML SQ SCH ×2 (00:11→09:17)
[2017-02-18 01:03] VITALS: BP 110/62
[2017-02-18] MEDS: AMPICILLIN/SULBACTAM 3 GM in SODIUM CHLORIDE 0.9% 100 ML IV SCH ×2 (03:56→09:16)
[2017-02-18 05:54] LABS: MEAN CORPUSCULAR HEMOGLOBIN 32.8 pg (27.5-34.5); MEAN CORPUSCULAR HGB CONC 33.4 g/dL (33.2-36.2); MEAN CORPUSCULAR VOLUME 98.2 fL (81-97); MEAN PLATELET VOLUME 7.1 fL (7.4-10.4); PLATELET COUNT 272 x10^3/uL (130-400); RED BLOOD COUNT 2.62 x10^6/uL (4.38-5.82); RED CELL DISTRIBUTION WIDTH 23.9 % (9.4-14.8)
[2017-02-18 06:03] LABS: ANION GAP 8 mmol/L (5-15); CALCIUM 7.6 mg/dL (8.5-10.1); CHLORIDE 105 mmol/L (98-107)
[2017-02-18 06:05] LABS: CREATININE 0.76 mg/dL (0.7-1.3)
[2017-02-18 06:11] LABS: BASOPHILS # (AUTO) 0.02 x10^3/uL (0-0.1); BASOPHILS % (AUTO) 0 % (0-1); EOSINOPHILS # (AUTO) 0.12 x10^3/uL (0-0.4); EOSINOPHILS % (AUTO) 2 % (1-7); LYMPHOCYTES # (AUTO) 0.81 x10^3/uL (1-3.4); LYMPHOCYTES % (AUTO) 13 % (22-44); MD SCAN; MONOCYTES # (AUTO) 0.76 x10^3/uL (0.2-0.8); MONOCYTES % (AUTO) 13 % (2-9); NEUTROPHILS # (AUTO) 4.43 x10^3/uL (1.8-6.8); NEUTROPHILS % (AUTO) 72 % (42-75)
[2017-02-18 07:56] VITALS: BP 100/65
[2017-02-18] MEDS: DOCUSATE 50 MG/5 ML, 10ML UDC NG SCH (09:00)
[2017-02-18] MEDS: GUAIFENESIN 100 MG/5 ML PO SCH (09:00)
[2017-02-18] MEDS: VORICONAZOLE 200 MG TABLET PO SCH (09:17)
[2017-02-18] MEDS: QUETIAPINE 100MG TABLET PO SCH (09:17)
[2017-02-18] MEDS: POTASSIUM CHLORIDE 20 MEQ TAB.ER.PRT PO SCH (09:17)
[2017-02-18] MEDS ORDERED: ALBU2.5V NPPB (13:06)
[2017-02-18] MEDS ORDERED: LINE600T37 PO (13:06)
[2017-02-18] MEDS ORDERED: GUAI100L11 PO (13:06)
[2017-02-18] MEDS ORDERED: VORI200T PO (13:06)
[2017-02-18] MEDS ORDERED: POTA20TA6 PO (13:06)
[2017-02-18] MEDS ORDERED: AMPI3VIA IV (13:06)
[2017-02-18] MEDS ORDERED: BISA10SU65 PR (13:06)
[2017-02-18] MEDS ORDERED: CALC200T24 PO (13:06)
[2017-02-18] MEDS ORDERED: ERGO80004 PO (13:06)
[2017-02-18] MEDS ORDERED: QUET100T PO (13:06)
[2017-02-18 13:27] VITALS: BP 97/60
== END 2017-02-18 14:48 | DRG 853 ==
LOC: ED 05:23 → EDIP 05:28 → ED 05:30 → CCU 09:58 → ICU 01-23 22:06 → 4WST 01-24 17:41 → CCU 01-31 22:43 → ICU 02-02 16:51 → CCU 02-05 19:51 → 4WST 02-07 13:18
PROVIDERS: ADMIT Hospitalist; ATTEND Hospitalist
PROC: 0BH17EZ Insertion of Endotracheal Airway into Trachea, Via Natural or Artificial Opening (ICD-10-PCS; principal; 2017-01-06)
PROC: 5A1955Z Respiratory Ventilation, Greater than 96 Consecutive Hours (ICD-10-PCS; 2017-01-06)
PROC: 0T9B70Z Drainage of Bladder with Drainage Device, Via Natural or Artificial Opening (ICD-10-PCS; 2017-01-06)
PROC: 02HV33Z Insertion of Infusion Device into Superior Vena Cava, Percutaneous Approach (ICD-10-PCS; 2017-01-07)
PROC: B548ZZA Ultrasonography of Superior Vena Cava, Guidance (ICD-10-PCS; 2017-01-07)
PROC: 02HV33Z Insertion of Infusion Device into Superior Vena Cava, Percutaneous Approach (ICD-10-PCS; 2017-01-14)
PROC: B548ZZA Ultrasonography of Superior Vena Cava, Guidance (ICD-10-PCS; 2017-01-14)
PROC: 5A1D70Z Performance of Urinary Filtration, Intermittent, Less than 6 Hours Per Day (ICD-10-PCS; 2017-01-16)
PROC: 5A1D70Z Performance of Urinary Filtration, Intermittent, Less than 6 Hours Per Day (ICD-10-PCS; 2017-01-17)
PROC: 5A1D70Z Performance of Urinary Filtration, Intermittent, Less than 6 Hours Per Day (ICD-10-PCS; 2017-01-19)
PROC: 0B9J8ZX Drainage of Left Lower Lung Lobe, Via Natural or Artificial Opening Endoscopic, Diagnostic (ICD-10-PCS; 2017-01-20)
PROC: 5A1D70Z Performance of Urinary Filtration, Intermittent, Less than 6 Hours Per Day (ICD-10-PCS; 2017-01-21)
PROC: 0DH63UZ Insertion of Feeding Device into Stomach, Percutaneous Approach (ICD-10-PCS; 2017-01-30)
PROC: 02HV33Z Insertion of Infusion Device into Superior Vena Cava, Percutaneous Approach (ICD-10-PCS; 2017-02-02)
PROC: B548ZZA Ultrasonography of Superior Vena Cava, Guidance (ICD-10-PCS; 2017-02-02)
PROC: 30233N1 Transfusion of Nonautologous Red Blood Cells into Peripheral Vein, Percutaneous Approach (ICD-10-PCS; 2017-02-05)
DX: A40.3 Sepsis due to Streptococcus pneumoniae (principal); J96.01 Acute respiratory failure with hypoxia; A41.02 Sepsis due to Methicillin resistant Staphylococcus aureus; E43 Unspecified severe protein-calorie malnutrition; J85.1 Abscess of lung with pneumonia; J15.212 Pneumonia due to Methicillin resistant Staphylococcus aureus; N17.0 Acute kidney failure with tubular necrosis; J15.4 Pneumonia due to other streptococci; G93.41 Metabolic encephalopathy; R64 Cachexia; R65.21 Severe sepsis with septic shock; J81.1 Chronic pulmonary edema; E87.4 Mixed disorder of acid-base balance; J44.0 Chronic obstructive pulmonary disease with (acute) lower respiratory infection; E87.0 Hyperosmolality and hypernatremia; E87.1 Hypo-osmolality and hyponatremia; F20.0 Paranoid schizophrenia; Z68.1 Body mass index [BMI] 19.9 or less, adult; I47.1 Supraventricular tachycardia; J44.1 Chronic obstructive pulmonary disease with (acute) exacerbation; J90 Pleural effusion, not elsewhere classified; N13.30 Unspecified hydronephrosis; Z99.11 Dependence on respirator [ventilator] status; Z51.5 Encounter for palliative care; Z66 Do not resuscitate; D50.9 Iron deficiency anemia, unspecified; F12.90 Cannabis use, unspecified, uncomplicated; B95.5 Unspecified streptococcus as the cause of diseases classified elsewhere; D63.1 Anemia in chronic kidney disease; E55.9 Vitamin D deficiency, unspecified; E87.5 Hyperkalemia; E87.6 Hypokalemia; E87.8 Other disorders of electrolyte and fluid balance, not elsewhere classified; F17.200 Nicotine dependence, unspecified, uncomplicated; I48.91 Unspecified atrial fibrillation; K25.9 Gastric ulcer, unspecified as acute or chronic, without hemorrhage or perforation; K29.70 Gastritis, unspecified, without bleeding; L89.152 Pressure ulcer of sacral region, stage 2; M21.379 Foot drop, unspecified foot; N14.1 Nephropathy induced by other drugs, medicaments and biological substances; N18.9 Chronic kidney disease, unspecified; N25.0 Renal osteodystrophy; R13.10 Dysphagia, unspecified; T50.8X5A Adverse effect of diagnostic agents, initial encounter; Y92.039 Unspecified place in apartment as the place of occurrence of the external cause; Z23 Encounter for immunization; Z59.0 Homelessness; Z78.1 Physical restraint status; Z79.899 Other long term (current) drug therapy; Z99.2 Dependence on renal dialysis; R59.0 Localized enlarged lymph nodes
CPT/HCPCS: 31500; 31624; 36415; 36569; 36600; 51702; 71010; 71250; 71275; 74000; 74230; 76770; 76937; 77001; 80048; 80053; 80069; 80307; 80329; 81001; 82040; 82272; 82306; 82310; 82533; 82550; 82728; 82784; 82787; 82803; 82805; 82962; 83540; 83550; 83605; 83735; 83970; 84100; 84478; 84484; 84550; 85025; 85651; 86022; 86140; 86480; 86612; 86635; 86698; 86703; 86706; 86803; 86850; 86900; 86923; 87015; 87040; 87070; 87077; 87081; 87086; 87102; 87106; 87107; 87116; 87147; 87181; 87184; 87186; 87205; 87206; 87305; 87324; 87340; 87400; 87449; 87899; 88112; 88305; 90686; 93005; 93306; 94002; 94003; 94640; 94660; 96361; 96365; 96367; 96375; B4087; J0295; J0456; J0690; J0696; J0882; J1644; J1756; J1940; J2020; J2248; J2405; J2704; J3010; J3360; J3370; J3411; J3475; J3480; J3490; J7042; J7060; J7070; J7608; J7613; J7620; P9047; Q9967; 92523-GN; C1751; C9113; G0009; G0435; G0479; G0480; J1450; J1642; J2060; J2920; J2930; J7030; J7040; J7050; J7512; P9016; S0028